=== PATIENT | female | born 2000 | race Two or more races ===

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

== ENCOUNTER 2021-05-17 23:03 | Emergency (ER) | payer OTHER ==
[2021-05-17 23:13] VITALS: RESP 18; TEMP 99
[2021-05-17] MEDS ORDERED: SODIUM CHLORIDE 0.9% 1,000 ML IV STA (23:24)
[2021-05-17] MEDS ORDERED: levETIRAcetam IV 1,000 MG in SALINE 1 100ML.BAG IVPB ONE (23:30)
[2021-05-17 23:50] LABS: Basophils # (A) 0.1 k/uL (0-0.2); Basophils % (A) 1 %; Eosinophils # (A) 0.2 k/uL (0-0.7); Eosinophils % (A) 2 %; HCT 43.3 % (34.0-46.0); HGB 14.1 gm/dL (11.4-16.0); Lymphocytes # (A) 1.6 k/uL (1.0-4.8); Lymphocytes % (A) 19 %; MCH 26.7 pg (25.0-35.0); MCHC 32.5 g/dL (31.0-37.0); MCV 82.3 fL (80.0-100.0); Mean Platelet Volume 8.5; Monocytes # (A) 0.5 k/uL (0-1.0); Monocytes % (A) 7 %; Neutrophils # (A) 5.6 k/uL (1.3-7.7); Neutrophils % (A) 69 %; Platelet Count 257 k/uL (150-450); RBC 5.26 m/uL (3.80-5.40); RDW 14.4 % (11.5-15.5); WBC 8.2 k/uL (4.0-11.0)
[2021-05-18 00:02] LABS: ALT 26 U/L (4-34); AST 47 U/L (14-36); African American GFR (CKD) >90 (>60 ml/min/1.73 sqM); Albumin 4.5 g/dL (3.5-5.0); Alkaline Phosphatase 60 U/L (38-126); Anion Gap 12 mmol/L; Blood Urea Nitrogen 11 mg/dL (7-17); Calcium 9.5 mg/dL (8.4-10.2); Carbon Dioxide 27 mmol/L (22-30); Chloride 99 mmol/L (98-107); Glucose 98 mg/dL (74-99); Non-African American GFR(CKD) 81 (>60 ml/min/1.73 sqM); Sodium 138 mmol/L (137-145); Total Bilirubin 0.7 mg/dL (0.2-1.3); Total Protein 7.2 g/dL (6.3-8.2)
--- NOTE | 2021-05-18 00:13 | ED ---
Seizure HPI - General Chief Complaint: Seizure Stated Complaint: Seizure Time Seen by Provider: 05/17/21 23:07 Source: EMS Mode of arrival: EMS Limitations: no limitations - History of Present Illness Initial Comments: 20 year-old female transitioning to male with past history significant for seizures presents to the emergency department today for evaluation after having a seizure at home. Mother states that he was lying on the couch watching when he started seizing. States her last approximately 5 minutes until he quit. Denies any loss of bowel or bladder control. Was tired and somewhat confused upon awakening. Patient missed his last doctor's appointment and was running out of his Keppra so he has been taking only half a dose daily. Does have an appointment on Thursday. He is currently reporting feeling tired. Denies any headache, blurred vision, double vision. Denies any recent illness or fever. Denies any recent head injury. Patient denies any recent rash, fever, chills, cough, shortness of breath, chest pain, abdominal pain, nausea, vomiting, diarrhea, constipation, back pain, numbness, tingling, dizziness, weakness, hematuria, dysuria, urinary urgency, urinary frequency, or any other complaints. - Related Data Home Medications Medication Instructions Recorded Confirmed levETIRAcetam [Keppra] 750 mg PO Q12HR 08/12/16 08/16/16 Previous Rx's Medication Instructions Recorded Sulfamethox-Tmp 800-160Mg [Bactrim 1 each PO Q12HR #14 tab 08/16/16 Ds] levETIRAcetam [Keppra] 1,000 mg PO Q12HR #14 tab 05/18/21 levETIRAcetam [Keppra] 250 mg PO DAILY #7 tab 05/18/21 Allergies Allergy/AdvReac Type Severity Reaction Status Date / Time No Known Allergies Allergy Verified 05/17/21 23:14 Review of Systems ROS Statement: Those systems with pertinent positive or pertinent negative responses have been documented in the HPI. ROS Other: All systems not noted in ROS Statement are negative. Past Medical History Past Medical History: Seizure Disorder Additional Past Medical History / Comment(s): seziure History of Any Multi-Drug Resistant Organisms: None Reported Past Surgical History: No Surgical Hx Reported Past Psychological History: No Psychological Hx Reported Past Alcohol Use History: None Reported Past Drug Use History: None Reported General Exam Limitations: no limitations General appearance: alert, in no apparent distress, other (Physical well- developed, well-nourished adult patient in no acute distress. Vital signs upon presentation are temperature 99.0F, pulse 93, respirations 18, blood pressure 143/92, pulse ox 98% on room air.) Eye exam: Present: normal appearance, PERRL, EOMI. Absent: scleral icterus, conjunctival injection, nystagmus, periorbital swelling ENT exam: Present: normal exam, normal oropharynx, mucous membranes moist Respiratory exam: Present: normal lung sounds bilaterally. Absent: respiratory distress, wheezes, rales, rhonchi, stridor Cardiovascular Exam: Present: regular rate, normal rhythm, normal heart sounds. Absent: systolic murmur, diastolic murmur, rubs, gallop, clicks GI/Abdominal exam: Present: soft, normal bowel sounds. Absent: distended, tenderness, guarding, rebound, rigid Neurological exam: Present: alert, oriented X3, CN II-XII intact Psychiatric exam: Present: normal affect, normal mood Skin exam: Present: warm, dry, intact, normal color. Absent: rash Course Vital Signs 05/17/21 05/18/21 23:06 01:09 Temperature 99.0 F Pulse Rate 93 87 Respiratory 18 18 Rate Blood Pressure 143/92 139/85 O2 Sat by Pulse 98 99 Oximetry Medical Decision Making - Medical Decision Making 20-year-old female patient transitioning to male presents for evaluation after having a five-minute seizure at home. No loss of bowel or bladder control, no tongue biting. Upon arrival patient is alert and oriented reports feeling tired. Physical examination is unremarkable. Labs reviewed and are unremarkable. He did admit that he has not taking her medications as prescribed that he did run out of her prescription. He was given a loading dose of 1000 mg of Keppra here. He'll be discharged with a one-week prescription as he does have an appointment with her primary care doctor Thursday. Return parameters were discussed in detail. He verbalizes understanding and agrees with this plan. My attending is Dr. Araiza. - Lab Data Result diagrams: 05/17/21 23:35 05/17/21 23:35 Lab Results 05/17/21 05/17/21 Range/Units 23:35 23:35 WBC 8.2 (4.0-11.0) k/uL RBC 5.26 (3.80-5.40) m/uL Hgb 14.1 (11.4-16.0) gm/dL Hct 43.3 (34.0-46.0) % MCV 82.3 (80.0-100.0) fL MCH 26.7 (25.0-35.0) pg MCHC 32.5 (31.0-37.0) g/dL RDW 14.4 (11.5-15.5) % Plt Count 257 (150-450) k/uL MPV 8.5 Neutrophils % 69 % Lymphocytes % 19 % Monocytes % 7 % Eosinophils % 2 % Basophils % 1 % Neutrophils # 5.6 (1.3-7.7) k/uL Lymphocytes # 1.6 (1.0-4.8) k/uL Monocytes # 0.5 (0-1.0) k/uL Eosinophils # 0.2 (0-0.7) k/uL Basophils # 0.1 (0-0.2) k/uL Sodium 138 (137-145) mmol/L Potassium 4.0 (3.5-5.1) mmol/L Chloride 99 (98-107) mmol/L Carbon Dioxide 27 (22-30) mmol/L Anion Gap 12 mmol/L BUN 11 (7-17) mg/dL Creatinine 1.01 (0.52-1.04) mg/dL Est GFR (CKD-EPI)AfAm >90 (>60 ml/min/1.73 sqM) Est GFR (CKD-EPI)NonAf 81 (>60 ml/min/1.73 sqM) Glucose 98 (74-99) mg/dL Calcium 9.5 (8.4-10.2) mg/dL Magnesium 2.0 (1.6-2.3) mg/dL Total Bilirubin 0.7 (0.2-1.3) mg/dL AST 47 H (14-36) U/L ALT 26 (4-34) U/L Alkaline Phosphatase 60 (38-126) U/L Total Protein 7.2 (6.3-8.2) g/dL Albumin 4.5 (3.5-5.0) g/dL - EKG Data -: EKG Interpreted by Mo EKG Comments: EKG obtained at 2308 shows normal sinus rhythm with sinus arrhythmia, ventricular rate 93, VA interval 140, QRS duration 94, QT 364, QTC 452. No evidence of ST elevation or depression. Disposition Clinical Impression: Seizure Disposition: HOME SELF-CARE Condition: Good Instructions (If sedation given, give patient instructions): Recurrent Seizures in Adults (ED) Additional Instructions: Take medications as directed. Follow-up with her physician on Thursday as you have planned. Return to the emergency department for any new, worsening, or concerning symptoms. Prescriptions: levETIRAcetam [Keppra] 1,000 mg PO Q12HR #14 tab levETIRAcetam [Keppra] 250 mg PO DAILY #7 tab Is patient prescribed a controlled substance at d/c from ED?: No Referrals: Tayler Lyn MD [Primary Care Provider] - 1-2 days Time of Disposition: 00:33
[2021-05-18 01:09] VITALS: BP 139/85; PULSE 87
== END 2021-05-18 00:50 | disposition home or self-care (01) ==
LOC: EC 23:03
DX: G40.909 Epilepsy, unspecified, not intractable, without status epilepticus (principal); Z79.899 Other long term (current) drug therapy
CPT/HCPCS: 93005; 80053; 80177; 83735; 85025; 99284; 96374; 96361; J1953

== ENCOUNTER → 2021-09-27 | Outpatient (CLI) | payer OTHER | END | disposition home or self-care (01) | LOC: LABWHC1 08:19 | PROVIDERS: ATTEND Psychiatry & Neurology Neurology | DX: G40.89 Other seizures (principal) | CPT/HCPCS: 36415; 80177 ==

== ENCOUNTER → 2022-05-27 | Outpatient (CLI) | payer OTHER | END | disposition home or self-care (01) | LOC: LABWHC1 14:37 | PROVIDERS: ATTEND Psychiatry & Neurology Neurology | DX: G40.89 Other seizures (principal) | CPT/HCPCS: 36415; 80177 ==

== ENCOUNTER → 2022-06-25 | Outpatient (CLI) | payer OTHER ==
--- NOTE | 2022-06-26 06:45 | MR ---
EXAMINATION TYPE: MR brain wo/w con DATE OF EXAM: 06/25/2022 COMPARISON: Prior MRI brain February 02, 2015 HISTORY: Seizure, migraines. TECHNIQUE: Multiplanar, multisequence images of the brain and brainstem is performed without and with IV contras t, utilizing 7 mL intravenous Gadavist . FINDINGS: Diffusion weighted images demonstrate no evidence of a recent infarct or other diffusion ab normality. There is no extra-axial fluid collection or significant white matter signal abnormality. The ventricular system and cisternal spaces are normal in size and appearance. The brain volume is age appropriate. T2 coronal weighted images show hippocampal gyri appear symmetric and felt within no rmal limits. Midline structures redemonstrate normal morphology. The craniocervical junction appears within clemente l limits. Post contrast images demonstrate no abnormal enhancement. The dural venous sinuses appear patent. Mild to moderate mucosal thickening involving ethmoid sinuses left greater than right is pres ent. Globes are intact bilaterally. IMPRESSION: Chronic ethmoid sinus disease redemonstrated otherwise unremarkable study.
== END | disposition home or self-care (01) ==
LOC: RADMRIMAIN 21:45
PROVIDERS: ATTEND Family Medicine
DX: G40.909 Epilepsy, unspecified, not intractable, without status epilepticus (principal); G43.909 Migraine, unspecified, not intractable, without status migrainosus
CPT/HCPCS: 70553; A9585

== ENCOUNTER 2022-07-24 11:09 | Day surgery (SDC) | payer OTHER ==
[2022-07-23 13:26] VITALS: BMI 25.0
[~2022-07-24 11:09] MED LIST: LACTATED RINGERS 1,000 ML IV SCH
--- NOTE | 2022-07-24 13:17 | P.GSHP ---
History of Present Illness H&P Date: 07/24/22 Chief Complaint: GERD, GI bleed Is a 21-year-old female presents today for EGD colonoscopy. She is issues with GERD GI bleed Past Medical History Past Medical History: Seizure Disorder Additional Past Medical History / Comment(s): LAST SEIZURE 07/10/22,MIGRAINE HEADACHES History of Any Multi-Drug Resistant Organisms: None Reported Past Surgical History: No Surgical Hx Reported Past Anesthesia/Blood Transfusion Reactions: No Reported Reaction Smoking Status: Never smoker - Past Family History Mother Family Medical History: No Reported History Medications and Allergies Home Medications Medication Instructions Recorded Confirmed Type levETIRAcetam [Keppra] 1,000 mg PO Q12H 07/23/22 07/24/22 History levETIRAcetam [Keppra] 500 mg PO Q12H 07/23/22 07/24/22 History Allergies Allergy/AdvReac Type Severity Reaction Status Date / Time No Known Allergies Allergy Verified 07/24/22 13:10 Surgical - Exam - General well developed, well nourished, no distress - Eyes PERRL - ENT normal pinna - Neck no masses - Respiratory normal expansion - Cardiovascular Rhythm: regular - Abdomen Abdomen: soft, non tender Assessment and Plan Assessment: GERD, GI bleed. We'll perform EGD and colonoscopy
[2022-07-24] MEDS ORDERED: LACTATED RINGERS 1,000 ML IV ONE ×2 (13:18)
[2022-07-24 13:24] VITALS: RESP 16; TEMP 98.5
[2022-07-24] MEDS ORDERED: LIDOCAINE 2% INJ 20 MG/ML (2 ML VIAL) ONE (14:27)
[2022-07-24] MEDS ORDERED: PROPOFOL 10 MG/ML 20 ML VIAL IV ONE (14:27)
--- NOTE | 2022-07-24 14:50 | P.OP ---
Date of Procedure: 07/24/22 Preoperative Diagnosis: GERD Diarrhea Postoperative Diagnosis: Antral gastritis Small sliding hiatal hernia Mild esophagitis Procedure(s) Performed: EGD Colonoscopy Anesthesia: MAC Surgeon: James Burk Pathology: other (Antrum, esophagus) Condition: stable Disposition: PACU Description of Procedure: The patient's placed on the endoscopy table lateral position. She received IV sedation. The gastroscope some placed oropharynx into the esophagus and stomach. Scope was then placed through the pylorus. The first and second portion of the duodenum appeared normal. Scope summer back the antrum was mildly inflamed. Biopsies performed. Scope was then retroflexed and the remainder the stomach appeared all. The patient a small sliding hiatal hernia. The GE junction was at 38 cm. The distal esophagus appeared minimally inflamed and a biopsies performed. The proximal esophagus appeared normal. Scope was withdrawn for patient. Next digital rectal exam was performed. This revealed no abnormalities. Flexible colonoscope was then placed patient anus passed throughout the entire colon. Ileocecal valve visualized. The cecum, ascending and transverse colon appeared normal. The descending and sigmoid colon appeared normal. Due to the patient's symptoms of diarrhea a random rectal biopsies performed. However the rectum appeared normal. Scope was withdrawn for patient.
[2022-07-24 15:17] VITALS: BP 111/73; PULSE 66
== END 2022-07-24 15:40 | disposition home or self-care (01) ==
LOC: ORWHC2ENDO 11:09
PROVIDERS: ATTEND Surgery
DX: K29.50 Unspecified chronic gastritis without bleeding (principal); K21.00 Gastro-esophageal reflux disease with esophagitis, without bleeding; K44.9 Diaphragmatic hernia without obstruction or gangrene; G40.909 Epilepsy, unspecified, not intractable, without status epilepticus; Z79.899 Other long term (current) drug therapy
CPT/HCPCS: 81025; 84703; 45380; 43239; J2704; J2001; 88305

== ENCOUNTER 2022-08-06 11:46 | Emergency (ER) | payer OTHER ==
[2022-08-06 11:56] VITALS: TEMP 98.1
[2022-08-06 12:22] LABS: Appearance,Urine Clear (Clear); Bilirubin,Urine Negative (Negative); Blood,Urine Negative (Negative); Color,Urine Yellow; Glucose,Urine (UA) Negative (Negative); Ketones,Urine Trace (Negative); Leukocyte Esterase,Urine Moderate (Negative); Mucus,Urine Rare /hpf; Nitrite,Urine Negative (Negative); Protein,Urine Trace (Negative); RBC,Urine 2 /hpf (0-5); Specific Gravity,Urine 1.026 (1.001-1.035); Squamous Epithelial Cell,Urine <1 /hpf (0-4); Urobilinogen,Urine <2.0 mg/dL (<2.0); WBC,Urine 6 /hpf (0-5)
[2022-08-06] MEDS ORDERED: PANTOPRAZOLE 40 MG/10 ML VIAL IVP STA (13:09)
[2022-08-06] MEDS ORDERED: MORPHINE SULFATE 2 MG/ML SYRINGE IVP STA (13:09)
[2022-08-06] MEDS ORDERED: ONDANSETRON 4 MG/2 ML VIAL IVP STA (13:09)
[2022-08-06] MEDS ORDERED: SODIUM CHLORIDE 0.9% 1,000 ML IV STA (13:09)
[2022-08-06] MEDS ORDERED: MAG HYDROX/AL HYDROX/SIMETH 30 ML, HYOSCYAMINE ELIXIR 10 ML, LIDOCAINE VISCOUS 2% 10 ML PO STA ×3 (13:12)
[2022-08-06 13:43] LABS: Basophils # (A) 0.1 k/uL (0-0.2); Basophils % (A) 1 %; Eosinophils # (A) 0.3 k/uL (0-0.7); Eosinophils % (A) 4 %; HCT 45.9 % (39.0-53.0); HGB 15.9 gm/dL (13.0-17.5); Lymphocytes # (A) 1.4 k/uL (1.0-4.8); Lymphocytes % (A) 22 %; MCH 30.1 pg (25.0-35.0); MCHC 34.6 g/dL (31.0-37.0); MCV 87.1 fL (80.0-100.0); Mean Platelet Volume 9.4; Monocytes # (A) 0.4 k/uL (0-1.0); Monocytes % (A) 6 %; Neutrophils # (A) 4.2 k/uL (1.3-7.7); Neutrophils % (A) 64 %; Platelet Count 254 k/uL (150-450); RBC 5.27 m/uL (4.30-5.90); RDW 12.5 % (11.5-15.5); WBC 6.5 k/uL (4.0-11.0)
--- NOTE | 2022-08-06 13:52 | XR ---
EXAMINATION TYPE: XR chest 2V DATE OF EXAM: 08/06/2022 COMPARISON: NONE HISTORY: pain TECHNIQUE: Frontal and lateral views of the chest are obtained. FINDINGS: There is no focal air space opacity, pleural effusion, or pneumothorax seen. The cardiac silhouette size is within normal limits. There are overlying leads. Right hemidiaphragm is elevated. The osseous structures are intact. IMPRESSION: No acute cardiopulmonary process.
[2022-08-06 13:55] LABS: HCG,Qualitative Serum Not Detected
[2022-08-06 13:57] LABS: INR 1.1 (<1.2); Partial Thromboplastin Time 26.9 sec (22.0-30.0); Prothrombin Time 11.8 sec (9.0-12.0)
[2022-08-06 14:08] LABS: ALT 25 U/L (4-49); AST 24 U/L (17-59); African American GFR (CKD) 116 (>60 ml/min/1.73 sqM); Albumin 4.6 g/dL (3.5-5.0); Alkaline Phosphatase 52 U/L (38-126); Amylase 38 U/L (30-110); Anion Gap 12 mmol/L; Blood Urea Nitrogen 11 mg/dL (9-20); Calcium 9.3 mg/dL (8.4-10.2); Carbon Dioxide 23 mmol/L (22-30); Chloride 104 mmol/L (98-107); Glucose 91 mg/dL (74-99); Lipase 89 U/L (23-300); Non-African American GFR(CKD) 100 (>60 ml/min/1.73 sqM); Sodium 139 mmol/L (137-145); Total Bilirubin 0.7 mg/dL (0.2-1.3); Total Protein 7.3 g/dL (6.3-8.2)
[2022-08-06 14:38] VITALS: RESP 18
--- NOTE | 2022-08-06 14:43 | ED ---
General Adult HPI - General Chief complaint: Abdominal Pain Stated complaint: chest & abd pain Time Seen by Provider: 08/06/22 12:44 Source: patient, RN notes reviewed, old records reviewed Mode of arrival: ambulatory Limitations: no limitations - History of Present Illness Initial comments: Patient is a 21-year-old genetically female who identifies as male and goes by the name Vincent presents emergency Department complaining of acute onset chronic abdominal pain. Has a history of recent EGD done by Dr. Burk which revealed gastritis, as well as a small hiatal hernia. Presents for reevaluation as his symptoms have minimally improved since the procedure. Is not on any medications for it. Biopsies obtained revealed gastritis. No signs of H pylori. Mild chronic esophagitis. Presents for further evaluation. He endorses mild nausea. States he has noticed a small amount of possible blood in his spit up. Has been dry heaving. Has not followed up with any physicians. Does have a history of seizure disorder and is compliant with medications. Denies emesis. Denies diarrhea. Denies change in bowel movements. Denies dysuria or hematuria. Denies any vaginal bleeding or discharge. Has no other acute complaints at this time. States the pain radiates from his epigastric the middle. Burning in nature. No other acute complaints at this time. Presents for further evaluation. - Related Data Home Medications Medication Instructions Recorded Confirmed levETIRAcetam [Keppra] 1,000 mg PO Q12H 07/23/22 07/24/22 levETIRAcetam [Keppra] 500 mg PO Q12H 07/23/22 07/24/22 Previous Rx's Medication Instructions Recorded Famotidine 20 mg PO DAILY 10 Days #10 tab 08/06/22 Mag Hydrox/Al Hydrox/Simeth 30 ml PO BID PRN #400 ml 08/06/22 [Maalox] Allergies Allergy/AdvReac Type Severity Reaction Status Date / Time No Known Allergies Allergy Verified 08/06/22 14:47 Review of Systems ROS Statement: Those systems with pertinent positive or pertinent negative responses have been documented in the HPI. Review of Systems: CONST: Denies fever EYES: Denies blurry vision ENT: Denies nasal congestion C/V: Denies Chest pain RESP: Denies shortness of breath GI: Endorses abdominal pain : Denies dysuria SKIN: Denies rash. MSK: Denies joint pain. NEURO: Denies headache ROS Other: All systems not noted in ROS Statement are negative. Past Medical History Past Medical History: Seizure Disorder Additional Past Medical History / Comment(s): LAST SEIZURE 07/10/22,MIGRAINE HEADACHES, patient transitioning to female and has been taking testoterone for 2 years History of Any Multi-Drug Resistant Organisms: None Reported Past Surgical History: No Surgical Hx Reported Additional Past Surgical History / Comment(s): Endoscopy Past Anesthesia/Blood Transfusion Reactions: No Reported Reaction Past Psychological History: No Psychological Hx Reported Smoking Status: Never smoker Past Alcohol Use History: None Reported Past Drug Use History: None Reported - Past Family History Mother Family Medical History: No Reported History General Exam - General Exam Comments Initial Comments: General: Appears in no acute distress. HEAD: Normal with no signs of head trauma. EYES: PERRLA, EOMI, conjunctiva normal, no discharge. ENT: Hearing grossly intact, normal oropharynx. RESPIRATORY: Clear breath sounds bilaterally. No wheezes, rales, or rhonchi. C/V: Regular rate and rhythm. S1 and S2 auscultated, no edema, peripheral pulses 2+ and intact throughout ABD: Abdomen soft, nondistended. Mildly tender to palpation epigastric region. No radiation. No guarding. No rebound tenderness. No peritoneal signs. EXT: Normal range of motion, no obvious deformity SKIN: No rashes or lesions observed on exposed skin. NEURO: Alert and oriented 4. Limitations: no limitations Course Vital Signs 08/06/22 08/06/22 11:53 14:38 Temperature 98.1 F Pulse Rate 71 57 Respiratory 16 18 Rate Blood Pressure 155/100 136/81 O2 Sat by Pulse 100 96 Oximetry Medical Decision Making - Medical Decision Making Based on the patient's presentation and physical exam, I do believe he is likely experiencing chronic symptoms from his gastritis, acid reflux. However cannot rule out acute etiology at this time. We'll obtain screening EKG and chest x- ray. We'll obtain abdominal laboratory studies. Will be given GI cocktail as well as abdominal medications. He was in agreement this plan. Vital signs within acceptable limits. EKG shows no signs of acute ischemia. Chest x-ray shows no acute card iopulmonary process. No air under the diaphragm. Laboratory studies are all within normal limits. Patient is not . Urinalysis is unremarkable. On reevaluation, vital signs remained within acceptable limits. Feeling somewhat improved. We discussed his results. He will follow-up with his surgeon as well as PCP. Strict return precautions were discussed. Discussed diagnosis of abdominal pain of unknown etiology, suspect gastritis. I will provide the patient with a prescription for Maalox, famotidine. I instructed the patient to follow up with their PCP in the next 1-3 days. I explained that the patient should return to the emergency department if they experience any worsening symptoms. Strict return precautions were discussed with the patient. The patient expressed understanding of these instructions. I answered all questions that the patient had. The patient was discharged home in good condition with their prescriptions and follow up information. - Lab Data Result diagrams: 08/06/22 13:24 08/06/22 13:24 Lab Results 08/06/22 08/06/22 08/06/22 Range/Units 12:12 13:14 13:24 WBC 6.5 (4.0-11.0) k/uL RBC 5.27 (4.30-5.90) m/uL Hgb 15.9 (13.0-17.5) gm/dL Hct 45.9 (39.0-53.0) % MCV 87.1 (80.0-100.0) fL MCH 30.1 (25.0-35.0) pg MCHC 34.6 (31.0-37.0) g/dL RDW 12.5 (11.5-15.5) % Plt Count 254 (150-450) k/uL MPV 9.4 Neutrophils % 64 % Lymphocytes % 22 % Monocytes % 6 % Eosinophils % 4 % Basophils % 1 % Neutrophils # 4.2 (1.3-7.7) k/uL Lymphocytes # 1.4 (1.0-4.8) k/uL Monocytes # 0.4 (0-1.0) k/uL Eosinophils # 0.3 (0-0.7) k/uL Basophils # 0.1 (0-0.2) k/uL PT (9.0-12.0) sec INR (<1.2) APTT (22.0-30.0) sec Sodium (137-145) mmol/L Potassium (3.5-5.1) mmol/L Chloride (98-107) mmol/L Carbon Dioxide (22-30) mmol/L Anion Gap mmol/L BUN (9-20) mg/dL Creatinine (0.66-1.25) mg/dL Est GFR (CKD-EPI)AfAm (>60 ml/min/1.73 sqM) Est GFR (CKD-EPI)NonAf (>60 ml/min/1.73 sqM) Glucose (74-99) mg/dL Plasma Lactic Acid Sigifredo (0.7-2.0) mmol/L Calcium (8.4-10.2) mg/dL Total Bilirubin (0.2-1.3) mg/dL AST (17-59) U/L ALT (4-49) U/L Alkaline Phosphatase (38-126) U/L Total Protein (6.3-8.2) g/dL Albumin (3.5-5.0) g/dL Amylase (30-110) U/L Lipase (23-300) U/L HCG, Qual Urine Color Yellow Urine Appearance Clear (Clear) Urine pH 6.0 (5.0-8.0) Ur Specific Justice 1.026 (1.001-1.035) Urine Protein Trace H (Negative) Urine Glucose (UA) Negative (Negative) Urine Ketones Trace H (Negative) Urine Blood Negative (Negative) Urine Nitrite Negative (Negative) Urine Bilirubin Negative (Negative) Urine Urobilinogen <2.0 (<2.0) mg/dL Ur Leukocyte Esterase Moderate H (Negative) Urine RBC 2 (0-5) /hpf Urine WBC 6 H (0-5) /hpf Ur Squamous Epith Cells <1 (0-4) /hpf Urine Mucus Rare H (None) /hpf Urine HCG, Qual Not Detected (Not Detectd) 08/06/22 08/06/22 08/06/22 Range/Units 13:24 13:24 13:24 WBC (4.0-11.0) k/uL RBC (4.30-5.90) m/uL Hgb (13.0-17.5) gm/dL Hct (39.0-53.0) % MCV (80.0-100.0) fL MCH (25.0-35.0) pg MCHC (31.0-37.0) g/dL RDW (11.5-15.5) % Plt Count (150-450) k/uL MPV Neutrophils % % Lymphocytes % % Monocytes % % Eosinophils % % Basophils % % Neutrophils # (1.3-7.7) k/uL Lymphocytes # (1.0-4.8) k/uL Monocytes # (0-1.0) k/uL Eosinophils # (0-0.7) k/uL Basophils # (0-0.2) k/uL PT 11.8 (9.0-12.0) sec INR 1.1 (<1.2) APTT 26.9 (22.0-30.0) sec Sodium 139 (137-145) mmol/L Potassium 4.0 (3.5-5.1) mmol/L Chloride 104 (98-107) mmol/L Carbon Dioxide 23 (22-30) mmol/L Anion Gap 12 mmol/L BUN 11 (9-20) mg/dL Creatinine 1.07 (0.66-1.25) mg/dL Est GFR (CKD-EPI)AfAm 116 (>60 ml/min/1.73 sqM) Est GFR (CKD-EPI)NonAf 100 (>60 ml/min/1.73 sqM) Glucose 91 (74-99) mg/dL Plasma Lactic Acid Sigifredo 0.8 (0.7-2.0) mmol/L Calcium 9.3 (8.4-10.2) mg/dL Total Bilirubin 0.7 (0.2-1.3) mg/dL AST 24 (17-59) U/L ALT 25 (4-49) U/L Alkaline Phosphatase 52 (38-126) U/L Total Protein 7.3 (6.3-8.2) g/dL Albumin 4.6 (3.5-5.0) g/dL Amylase 38 (30-110) U/L Lipase 89 (23-300) U/L HCG, Qual Not Detected Urine Color Urine Appearance (Clear) Urine pH (5.0-8.0) Ur Specific Justice (1.001-1.035) Urine Protein (Negative) Urine Glucose (UA) (Negative) Urine Ketones (Negative) Urine Blood (Negative) Urine Nitrite (Negative) Urine Bilirubin (Negative) Urine Urobilinogen (<2.0) mg/dL Ur Leukocyte Esterase (Negative) Urine RBC (0-5) /hpf Urine WBC (0-5) /hpf Ur Squamous Epith Cells (0-4) /hpf Urine Mucus (None) /hpf Urine HCG, Qual (Not Detectd) - EKG Data -: EKG Interpreted by Me EKG Comments: 12-lead Electrocardiogram Interpretation Note EKG was reviewed and interpreted by myself. 12-lead ECG performed at 1316 is interpreted by me as revealing sinus bradycardia at a rate of 44 beats per minute. [place] is normal. ID interval is 144 ms, QRS duration is 100 ms, QTc is 368 ms.. There were no ST or T wave abnormalities to suggest myocardial isc hemia or injury. R wave progression across the precordium was satisfactory. By my interpretation this EKG is non-diagnostic for acute ischemia. Disposition Clinical Impression: Abdominal pain of unknown etiology Disposition: HOME SELF-CARE Condition: Good Instructions (If sedation given, give patient instructions): Abdominal Pain (ED) Prescriptions: Famotidine 20 mg PO DAILY 10 Days #10 tab Mag Hydrox/Al Hydrox/Simeth [Maalox] 30 ml PO BID PRN #400 ml PRN Reason: Dyspepsia Is patient prescribed a controlled substance at d/c from ED?: No Referrals: Ludy Restrepo DO [Primary Care Provider] - 1-2 days Time of Disposition: 14:20
[2022-08-06 14:56] VITALS: BP 136/80; PULSE 55
== END 2022-08-06 14:57 | disposition home or self-care (01) ==
LOC: EDSEX → EC 11:46
DX: R10.9 Unspecified abdominal pain (principal)
CPT/HCPCS: 36415; 93005; 80053; 82150; 83605; 83690; 85025; 85610; 85730; 81001; 81025; 84703; 71046; 99284; J2405; J2270; C9113

== ENCOUNTER → 2022-08-11 | Outpatient (CLI) | payer OTHER ==
--- NOTE | 2022-08-11 15:51 | NM ---
Nuclear medicine hepatobiliary scan. HISTORY: Pain. DOSAGE: The patient received 1.4 micrograms of CCK and 4.2 mCi of Technetium 99m Choletec. FINDINGS: There is normal hepatic extraction. The gallbladder is seen by 10 minutes. There is bilia ry to bowel clearance by 60 minutes. Ejection fraction is 81%. IMPRESSION: 1. No evidence of cholecystitis. 2. Ejection fraction of 81% correlate clinically.
== END | disposition home or self-care (01) ==
LOC: EDSEX → RADNMMAIN 12:50
PROVIDERS: ATTEND Surgery
DX: K82.8 Other specified diseases of gallbladder (principal)
CPT/HCPCS: 78227; A9537; J2805

== ENCOUNTER → 2022-08-26 | Outpatient (CLI) | payer OTHER ==
[2022-08-27 06:57] LABS: Levetiracetam (Keppra) 32.1 ug/mL (3.0-60.0)
== END | disposition home or self-care (01) ==
LOC: LABWHC1 08:43
PROVIDERS: ATTEND Psychiatry & Neurology Neurology
DX: G40.309 Generalized idiopathic epilepsy and epileptic syndromes, not intractable, without status epilepticus (principal)
CPT/HCPCS: 36415; 80177; 80235

== ENCOUNTER → 2022-09-29 | Day surgery (SDC) | payer OTHER ==
[2022-09-09 15:58] VITALS: BMI 25.4
[~2022-09-29] MED LIST changes: +ACETAMINOPHEN TAB 500 MG TAB PO PRN; +BUPIVACAIN-EPI 0.25%-1:200,000 30 ML VIAL SQ ONE; +DEXAMETHASONE SOD PHOSPHATE 4 MG/ML 1 ML VIAL IV ONE; +DEXAMETHASONE SOD PHOSPHATE 4 MG/ML 1 ML VIAL IVP ONE; +GLYCOPYRROLATE 0.2 MG/ML 2 ML VIAL ONE; +HEPARIN SODIUM,PORCINE/PF 5,000 UNIT/0.5 ML SYRINGE SQ PRN; +HYDROmorphone 0.5 MG/0.5 ML SYRINGE IVP ONE; +HYDROmorphone 0.5 MG/0.5 ML SYRINGE IVP PRN; +KETOROLAC 15 MG/ML 1 ML VIAL ONE; +LACTATED RINGERS 1,000 ML IV ONE; +LIDOCAINE 2% INJ 20 MG/ML (2 ML VIAL) ONE; +MIDAZOLAM 2 MG/2 ML VIAL IV PRN; +MIDAZOLAM 2 MG/2 ML VIAL ONE; +NEOSTIGMINE 1 MG/ML 10 ML VIAL ONE; +ONDANSETRON 4 MG/2 ML VIAL IVP ONE; +ONDANSETRON 4 MG/2 ML VIAL ONE; +PROPOFOL 10 MG/ML 20 ML VIAL IV ONE; +ROCURONIUM 10 MG/ML (5 ML VIAL) IV ONE; +SCOPOLAMINE 1 MG/72 HR PATCH TRANSDERM ONE; +SUCCINYLCHOLINE CHLORIDE 200 MG/10 ML VIAL IV ONE; +fentaNYL (PF) 50 MCG/ML 2 ML AMP ONE
--- NOTE | 2022-09-29 08:56 | P.GSHP ---
History of Present Illness H&P Date: 09/29/22 Chief Complaint: Right upper quadrant pain This a 21-year-old female who's had right upper quadrant pain. Recent HIDA scan shows a hyperdynamic gallbladder with biliary dysfunction. Patient presents today for laparoscopic cholecystectomy Past Medical History Past Medical History: GERD/Reflux, Seizure Disorder Additional Past Medical History / Comment(s): LAST SEIZURE 07/10/22,MIGRAINE HEADACHES, patient transitioning to male and has been taking testoterone for 2 years. History of Any Multi-Drug Resistant Organisms: None Reported Past Surgical History: No Surgical Hx Reported Additional Past Surgical History / Comment(s): Endoscopy, [place] teeth Past Anesthesia/Blood Transfusion Reactions: No Reported Reaction Smoking Status: Never smoker - Past Family History Mother Family Medical History: No Reported History Medications and Allergies Home Medications Medication Instructions Recorded Confirmed Type levETIRAcetam [Keppra] 1,500 mg PO Q12H 07/23/22 09/25/22 History Famotidine 20 mg PO DAILY 10 Days #10 tab 08/06/22 09/29/22 Rx Lacosamide [Vimpat] 100 mg PO BID 08/06/22 09/25/22 History SUMAtriptan succinate [Imitrex] 50 mg PO DAILY PRN 08/06/22 09/29/22 History Testosterone Cypionate 80 mg IM WE 08/06/22 09/29/22 History [Depo-Testosterone] Topiramate [Topamax] 200 mg PO HS 08/06/22 09/29/22 History Allergies Allergy/AdvReac Type Severity Reaction Status Date / Time No Known Allergies Allergy Verified 09/29/22 08:23 Surgical - Exam Vital Signs Temp Pulse Resp BP Pulse Ox 98.5 F 71 16 168/77 100 09/29/22 08:36 09/29/22 08:36 09/29/22 08:36 09/29/22 08:36 09/29/22 08:36 - General well developed, well nourished, no distress - Eyes PERRL - ENT normal pinna - Neck no masses - Respiratory normal expansion - Cardiovascular Rhythm: regular - Abdomen Abdomen: soft, non tender Assessment and Plan Assessment: Biliary dysfunction Chronic cholecystitis We'll perform laparoscopic cholecystectomy
--- NOTE | 2022-09-29 10:23 | P.OP ---
Date of Procedure: 09/29/22 Preoperative Diagnosis: Cholecystitis Postoperative Diagnosis: Cholecystitis Procedure(s) Performed: Laparoscopic cholecystectomy Anesthesia: PANCHITO Surgeon: James Burk Estimated Blood Loss (ml): 5 Pathology: other (Gallbladder) Condition: stable Disposition: PACU Description of Procedure: The patient was placed on the operating table. The patient received a general endotracheal tube anesthesia. The patients abdomen was prepped and draped in the usual sterile fashion. Through an infraumbilical stab incision, the fascia of the anterior abdominal wall was grasped with a pair of Kochers and then the Veress needle was placed in the peritoneal cavity. Position of the Veress needle was confirmed with positive drop test. The abdomen was then insufflated. After adequate insufflation, the 10 mm trocar was placed in the peritoneal cavity. Following this the laparoscope was placed in the peritoneal cavity. The patient was placed in the head-up, right side up position and then a 5 mm trocar was placed in the right lateral and right subcostal position under direct visualization. A 8 mm trocar was placed in the epigastric position. The gallbladder was grasped in the fundus and infundibulum. Traction on the gallbladder was placed in the lateral and the cephalad positions. The triangle of Calot was visualized.. The cystic duct was bluntly dissected until the union of the cystic duct and common bile duct was seen. A critical view of safety was achieved. The cystic duct was then divided and sealed with the Harmonic scissors. A PDS Endoloop was then placed throughout the cystic duct stump. The cystic artery divided and sealed with the Harmonic scissors. The gallbladder was then removed from the liver bed using Harmonic scissors. The gallbladder was then extracted through the epigastric port site. Operative field was checked for any bleeding spots and Harmonic scissors was used to coagulate the liver bed. The abdomen was irrigated. The trocars were removed. The skin was closed using interrupted 3-0 Vicryl suture. Dermabond dressing were applied. The patient tolerated the procedure well.
[2022-09-29 10:30] VITALS: TEMP 98.4
[2022-09-29 12:15] VITALS: RESP 16
[2022-09-29 13:26] VITALS: BP 120/79; PULSE 56
== END | disposition home or self-care (01) ==
LOC: EDSEX → OR 08:10
PROVIDERS: ATTEND Surgery
DX: K81.1 Chronic cholecystitis (principal); K21.9 Gastro-esophageal reflux disease without esophagitis; G40.909 Epilepsy, unspecified, not intractable, without status epilepticus; G43.909 Migraine, unspecified, not intractable, without status migrainosus; Z79.899 Other long term (current) drug therapy
CPT/HCPCS: 81025; 47562; J2250; J0330; J1100; J2710; J0690; J2405; J3010; J1885; J2704; J1170; J1644; J2001; 88304

== ENCOUNTER 2022-10-07 07:00 | Emergency (ER) | payer OTHER ==
[2022-10-07 07:04] VITALS: TEMP 98.1
[2022-10-07] MEDS ORDERED: SODIUM CHLORIDE 0.9% 2,000 ML IV STA (07:23)
--- NOTE | 2022-10-07 07:30 | ED ---
Abdominal Pain HPI - General Chief Complaint: Abdominal Pain Stated Complaint: Abd Pain Time Seen by Provider: 10/07/22 07:06 Source: patient, RN notes reviewed Mode of arrival: ambulatory Limitations: no limitations - History of Present Illness Initial Comments: This a 21-year-old patient presents emergency Department with chief complaint of abdominal pain. Patient had surgery last week by Dr. Kenney for chronic cholecystitis patient states he was feeling better started having pain increasing over the last 24 hours. Patient denies any nausea vomiting no dysuria no hematuria no history kidney stones pain is on the front right upper quadrant. Patient denies any chest pain shortness breath fevers chills night sweats. - Related Data Home Medications Medication Instructions Recorded Confirmed levETIRAcetam [Keppra] 1,500 mg PO Q12H 07/23/22 09/25/22 Lacosamide [Vimpat] 100 mg PO BID 08/06/22 09/25/22 SUMAtriptan succinate [Imitrex] 50 mg PO DAILY PRN 08/06/22 09/29/22 Testosterone Cypionate 80 mg IM WE 08/06/22 09/29/22 [Depo-Testosterone] Topiramate [Topamax] 200 mg PO HS 08/06/22 09/29/22 Previous Rx's Medication Instructions Recorded Famotidine 20 mg PO DAILY 10 Days #10 tab 08/06/22 Acetaminophen Tab [Tylenol] 650 mg PO Q6H #30 tab 09/29/22 Docusate [Colace] 100 mg PO BID #20 capsule 09/29/22 Ibuprofen [Motrin] 600 mg PO Q6HR PRN #40 tab 09/29/22 oxyCODONE HCL [OxyIR] 5 mg PO Q6H PRN 3 Days #10 tab 09/29/22 Cephalexin [Keflex] 500 mg PO Q8HR #21 cap 10/07/22 Allergies Allergy/AdvReac Type Severity Reaction Status Date / Time No Known Allergies Allergy Verified 10/07/22 07:04 Review of Systems ROS Statement: Those systems with pertinent positive or pertinent negative responses have been documented in the HPI. ROS Other: All systems not noted in ROS Statement are negative. Past Medical History Past Medical History: GERD/Reflux, Seizure Disorder Additional Past Medical History / Comment(s): LAST SEIZURE 07/10/22,MIGRAINE HEADACHES, patient transitioning to male and has been taking testoterone for 2 years. History of Any Multi-Drug Resistant Organisms: None Reported Past Surgical History: Cholecystectomy Additional Past Surgical History / Comment(s): Endoscopy, [place] teeth Past Anesthesia/Blood Transfusion Reactions: No Reported Reaction Past Psychological History: No Psychological Hx Reported Smoking Status: Never smoker Past Alcohol Use History: None Reported Past Drug Use History: None Reported - Past Family History Mother Family Medical History: No Reported History General Exam Limitations: no limitations General appearance: alert, in no apparent distress Head exam: Present: atraumatic, normocephalic, normal inspection Eye exam: Present: normal appearance, PERRL, EOMI. Absent: scleral icterus, conjunctival injection, periorbital swelling ENT exam: Present: normal exam, normal oropharynx, mucous membranes moist Neck exam: Present: normal inspection, full ROM. Absent: tenderness, meningismus, lymphadenopathy Respiratory exam: Present: normal lung sounds bilaterally. Absent: respiratory distress, wheezes, rales, rhonchi, stridor Cardiovascular Exam: Present: regular rate, normal rhythm, normal heart sounds. Absent: systolic murmur, diastolic murmur, rubs, gallop, clicks GI/Abdominal exam: Present: soft, tenderness, normal bowel sounds. Absent: distended, guarding, rebound, rigid Back exam: Absent: CVA tenderness (R), CVA tenderness (L) Neurological exam: Present: alert Skin exam: Present: warm, dry, intact, normal color. Absent: rash Course Vital Signs 10/07/22 07:02 Temperature 98.1 F Pulse Rate 82 Respiratory 18 Rate Blood Pressure 155/94 O2 Sat by Pulse 100 Oximetry Medical Decision Making - Medical Decision Making 21-year-old presented from for abdominal pain status post closed second. Patient does have evidence of urinary tract infection on urinalysis and hemoglobin is stable, white count within normal limits. CT shows moderate amount of fluid in the gallbladder fossa area which could possibly represent hematoma or biliary leak did discuss case with surgeon Dr. Burk recommends patient be discharged pain control, follow-up in office return for worsening changes symptoms - Lab Data Result diagrams: 10/07/22 07:36 10/07/22 07:36 Lab Results 10/07/22 10/07/22 10/07/22 Range/Units 07:36 07:36 07:36 WBC 8.1 (4.0-11.0) k/uL RBC 3.99 (3.80-5.40) m/uL Hgb 12.0 D (11.4-16.0) gm/dL Hct 35.1 (34.0-46.0) % MCV 87.9 (80.0-100.0) fL MCH 30.1 (25.0-35.0) pg MCHC 34.2 (31.0-37.0) g/dL RDW 12.8 (11.5-15.5) % Plt Count 318 (150-450) k/uL MPV 8.2 Neutrophils % 74 % Lymphocytes % 13 % Monocytes % 7 % Eosinophils % 3 % Basophils % 1 % Neutrophils # 6.0 (1.3-7.7) k/uL Lymphocytes # 1.1 (1.0-4.8) k/uL Monocytes # 0.6 (0-1.0) k/uL Eosinophils # 0.2 (0-0.7) k/uL Basophils # 0.1 (0-0.2) k/uL Sodium 139 (137-145) mmol/L Potassium 4.2 (3.5-5.1) mmol/L Chloride 103 (98-107) mmol/L Carbon Dioxide 32 H (22-30) mmol/L Anion Gap 4 mmol/L BUN 16 (9-20) mg/dL Creatinine 0.65 L (0.66-1.25) mg/dL Est GFR (CKD-EPI)AfAm 162 (>60 ml/min/1.73 sqM) Est GFR (CKD-EPI)NonAf 140 (>60 ml/min/1.73 sqM) Glucose 90 (74-99) mg/dL Plasma Lactic Acid Sigifredo (0.7-2.0) mmol/L Calcium 8.9 (8.4-10.2) mg/dL Total Bilirubin 1.8 H (0.2-1.3) mg/dL AST 28 (17-59) U/L ALT 31 (4-49) U/L Alkaline Phosphatase 45 (38-126) U/L Total Protein 6.8 (6.3-8.2) g/dL Albumin 4.1 (3.5-5.0) g/dL Lipase 69 (23-300) U/L Urine Color Yellow Urine Appearance Clear (Clear) Urine pH 6.5 (5.0-8.0) Ur Specific [place] 1.027 (1.001-1.035) Urine Protein Trace H (Negative) Urine Glucose (UA) Negative (Negative) Urine Ketones Negative (Negative) Urine Blood Negative (Negative) Urine Nitrite Negative (Negative) Urine Bilirubin Negative (Negative) Urine Urobilinogen 6.0 (<2.0) mg/dL Ur Leukocyte Esterase Large H (Negative) Urine RBC 3 (0-5) /hpf Urine WBC 24 H (0-5) /hpf Ur Squamous Epith Cells <1 (0-4) /hpf Hyaline Casts 1 (0-2) /lpf Urine Mucus Occasional (None) /hpf 10/07/22 Range/Units 07:36 WBC (4.0-11.0) k/uL RBC (3.80-5.40) m/uL Hgb (11.4-16.0) gm/dL Hct (34.0-46.0) % MCV (80.0-100.0) fL MCH (25.0-35.0) pg MCHC (31.0-37.0) g/dL RDW (11.5-15.5) % Plt Count (150-450) k/uL MPV Neutrophils % % Lymphocytes % % Monocytes % % Eosinophils % % Basophils % % Neutrophils # (1.3-7.7) k/uL Lymphocytes # (1.0-4.8) k/uL Monocytes # (0-1.0) k/uL Eosinophils # (0-0.7) k/uL Basophils # (0-0.2) k/uL Sodium (137-145) mmol/L Potassium (3.5-5.1) mmol/L Chloride (98-107) mmol/L Carbon Dioxide (22-30) mmol/L Anion Gap mmol/L BUN (9-20) mg/dL Creatinine (0.66-1.25) mg/dL Est GFR (CKD-EPI)AfAm (>60 ml/min/1.73 sqM) Est GFR (CKD-EPI)NonAf (>60 ml/min/1.73 sqM) Glucose (74-99) mg/dL Plasma Lactic Acid Sigifredo 0.7 (0.7-2.0) mmol/L Calcium (8.4-10.2) mg/dL Total Bilirubin (0.2-1.3) mg/dL AST (17-59) U/L ALT (4-49) U/L Alkaline Phosphatase (38-126) U/L Total Protein (6.3-8.2) g/dL Albumin (3.5-5.0) g/dL Lipase (23-300) U/L Urine Color Urine Appearance (Clear) Urine pH (5.0-8.0) Ur Specific [place] (1.001-1.035) Urine Protein (Negative) Urine Glucose (UA) (Negative) Urine Ketones (Negative) Urine Blood (Negative) Urine Nitrite (Negative) Urine Bilirubin (Negative) Urine Urobilinogen (<2.0) mg/dL Ur Leukocyte Esterase (Negative) Urine RBC (0-5) /hpf Urine WBC (0-5) /hpf Ur Squamous Epith Cells (0-4) /hpf Hyaline Casts (0-2) /lpf Urine Mucus (None) /hpf Disposition Clinical Impression: Status post laparoscopic cholecystectomy, Abdominal pain, UTI (urinary tract infection) Disposition: HOME SELF-CARE Condition: Stable Instructions (If sedation given, give patient instructions): Abdominal Pain (ED) Additional Instructions: Please return to the Emergency Department if symptoms worsen or any other concerns. Prescriptions: Cephalexin [Keflex] 500 mg PO Q8HR #21 cap Is patient prescribed a controlled substance at d/c from ED?: No Referrals: Ludy Restrepo DO [Primary Care Provider] - 1-2 days James Burk MD [STAFF PHYSICIAN] - 1-2 days Time of Disposition: 08:58
[2022-10-07] MEDS ORDERED: ONDANSETRON 4 MG/2 ML VIAL IVP STA (07:41)
[2022-10-07] MEDS ORDERED: HYDROmorphone 0.5 MG/0.5 ML SYRINGE IVP STA (07:41)
[2022-10-07 07:44] LABS: Basophils # (A) 0.1 k/uL (0-0.2); Basophils % (A) 1 %; Eosinophils # (A) 0.2 k/uL (0-0.7); Eosinophils % (A) 3 %; HCT 35.1 % (34.0-46.0); Lymphocytes # (A) 1.1 k/uL (1.0-4.8); Lymphocytes % (A) 13 %; MCH 30.1 pg (25.0-35.0); MCHC 34.2 g/dL (31.0-37.0); MCV 87.9 fL (80.0-100.0); Mean Platelet Volume 8.2; Monocytes # (A) 0.6 k/uL (0-1.0); Monocytes % (A) 7 %; Neutrophils % (A) 74 %; Platelet Count 318 k/uL (150-450); RBC 3.99 m/uL (3.80-5.40); RDW 12.8 % (11.5-15.5); WBC 8.1 k/uL (4.0-11.0)
[2022-10-07 07:57] LABS: Albumin 4.1 g/dL (3.5-5.0); Calcium 8.9 mg/dL (8.4-10.2); Potassium 4.2 mmol/L (3.5-5.1); Total Bilirubin 1.8 mg/dL (0.2-1.3); Total Protein 6.8 g/dL (6.3-8.2)
[2022-10-07 07:59] LABS: Appearance,Urine Clear (Clear); Bilirubin,Urine Negative (Negative); Blood,Urine Negative (Negative); Color,Urine Yellow; Glucose,Urine (UA) Negative (Negative); Hyaline Casts,Urine 1 /lpf (0-2); Ketones,Urine Negative (Negative); Leukocyte Esterase,Urine Large (Negative); Mucus,Urine Occasional /hpf; Nitrite,Urine Negative (Negative); PH, Urine 6.5 (5.0-8.0); Protein,Urine Trace (Negative); RBC,Urine 3 /hpf (0-5); Specific Gravity,Urine 1.027 (1.001-1.035); Squamous Epithelial Cell,Urine <1 /hpf (0-4); WBC,Urine 24 /hpf (0-5)
--- NOTE | 2022-10-07 08:33 | CT ---
EXAMINATION TYPE: CT abdomen pelvis w con CT DLP: 692.4 mGycm, Automated exposure control for dose reduction was used. DATE OF EXAM: 10/07/2022 8:20 AM COMPARISON: None CLINICAL INDICATION:21 years old with history of pain s/p cholecystectomy; TECHNIQUE: Standard CT of the abdomen and pelvis following the administration of 100 cc of Isovue 3 00 IV contrast material. Coronal and sagittal reformats were performed. FINDINGS: LOWER CHEST: Trace right pleural effusion with associated atelectasis. ABDOMEN LIVER: Unremarkable GALLBLADDER AND BILE DUCTS: The gallbladder is surgically absent. No biliary duct dilatation. Moderat e amount of heterogenous slightly hyperdense material demonstrated within the gallbladder fossa measu ring 7.5 x 4.2 cm. No focal high density focus in the changes on the delayed phase to suggest active extravasation. PANCREAS: Unremarkable. SPLEEN: Unremarkable. ADRENAL GLANDS: Unremarkable. KIDNEYS AND URETERS: No evidence of hydronephrosis or renal calculus. The kidneys enhance symmetrical ly. PELVIS BLADDER: Understood urinary bladder was performed wall thickening. REPRODUCTIVE: Unremarkable. ABDOMEN & PELVIS STOMACH AND BOWEL: Stomach and duodenum are unremarkable. No focal wall thickening. No evidence of bailey wel obstruction. PERITONEUM: Trace pneumoperitoneum is likely related to recent cholecystectomy. Small amount of free fluid in the pelvis tracking along the right paracolic gutter. Mild mesenteric congestion. VASCULATURE: No evidence of aortic aneurysm. MUSCULOSKELETAL: No acute osseous abnormalities LYMPH NODES: No gross evidence for lymphadenopathy. SOFT TISSUE/ABDOMINAL WALL: Tiny fat filled umbilical hernia. IMPRESSION: 1. Post surgical changes from cholecystectomy with moderate amount of heterogenous slightly hyperden se material within the gallbladder fossa. This may represent hematoma and/or biliary leak. No convinc ing evidence for active extravasation. 2. Circumferential wall thickening of the underdistended urinary bladder. Correlate for cystitis with urinalysis. 3. Trace right pleural effusion with associated atelectasis.
[2022-10-07] MEDS ORDERED: ACET/COD 300 MG/30 MG STARTER PACK 6 TAB BTL PO STA (08:59)
[2022-10-07 09:29] VITALS: BP 128/88; PULSE 83; RESP 16
== END 2022-10-07 09:48 | disposition home or self-care (01) ==
LOC: EDSEX → EC 07:00
DX: N39.0 Urinary tract infection, site not specified (principal); Z90.49 Acquired absence of other specified parts of digestive tract
CPT/HCPCS: 36415; 80053; 83605; 83690; 85025; 81001; 87086; 74177; 99284; 96374; 96375; 96361 ×2; J2405; J1170; Q9967

== ENCOUNTER → 2023-03-30 | Outpatient (CLI) | payer OTHER ==
[2023-03-30 17:28] LABS: Platelet Count 281 X 10*3/uL (140-440)
[2023-03-31 06:23] LABS: Levetiracetam (Keppra) 21.6 ug/mL (3.0-60.0)
[2023-03-31 18:35] LABS: ALT 33 U/L (8-44); AST 23 U/L (13-35)
== END | disposition home or self-care (01) ==
LOC: LABWHC1 11:27 → EDSEX 11:27
PROVIDERS: ATTEND Psychiatry & Neurology Neurology
DX: G40.309 Generalized idiopathic epilepsy and epileptic syndromes, not intractable, without status epilepticus (principal)
CPT/HCPCS: 36415; 80177; 80235; 84450; 84460; 85049

== ENCOUNTER 2023-06-22 00:33 | Emergency (ER) | payer OTHER ==
[2023-06-22 00:45] VITALS: BP 151/96; PULSE 60; RESP 19; TEMP 99.2
[2023-06-22] MEDS ORDERED: ONDANSETRON 4 MG/2 ML VIAL IVP STA (03:20)
[2023-06-22] MEDS ORDERED: KETOROLAC 15 MG/ML 1 ML VIAL IVP STA (03:20)
[2023-06-22] MEDS ORDERED: SODIUM CHLORIDE 0.9% 1,000 ML IV STA (03:20)
[2023-06-22 04:00] LABS: ALT 45 U/L (4-34); AST 37 U/L (14-36); African American GFR (CKD) >90 (>60 ml/min/1.73 sqM); Albumin 3.7 g/dL (3.5-5.0); Alkaline Phosphatase 42 U/L (38-126); Anion Gap 6 mmol/L; Basophils # (A) 0.1 k/uL (0-0.2); Basophils % (A) 1 %; Blood Urea Nitrogen 11 mg/dL (7-17); Calcium 9.1 mg/dL (8.4-10.2); Carbon Dioxide 30 mmol/L (22-30); Chloride 100 mmol/L (98-107); Eosinophils # (A) 0.5 k/uL (0-0.7); Eosinophils % (A) 6 %; Glucose 98 mg/dL (74-99); HCT 43.4 % (34.0-46.0); HGB 14.4 gm/dL (11.4-16.0); Lipase 109 U/L (23-300); Lymphocytes # (A) 2.4 k/uL (1.0-4.8); Lymphocytes % (A) 26 %; MCH 28.6 pg (25.0-35.0); MCHC 33.2 g/dL (31.0-37.0); MCV 86.2 fL (80.0-100.0); Mean Platelet Volume 9.3; Monocytes # (A) 0.6 k/uL (0-1.0); Monocytes % (A) 7 %; Neutrophils # (A) 5.2 k/uL (1.3-7.7); Neutrophils % (A) 58 %; Non-African American GFR(CKD) >90 (>60 ml/min/1.73 sqM); Platelet Count 235 k/uL (150-450); RBC 5.04 m/uL (3.80-5.40); RDW 12.9 % (11.5-15.5); Sodium 136 mmol/L (137-145); Total Bilirubin 0.5 mg/dL (0.2-1.3); Total Protein 6.1 g/dL (6.3-8.2); WBC 9.1 k/uL (3.8-10.6)
--- NOTE | 2023-06-22 05:28 | ED ---
Abdominal Pain HPI - General Chief Complaint: Abdominal Pain Stated Complaint: Coughing up blood, fever Time Seen by Provider: 06/22/23 01:00 Source: patient Mode of arrival: ambulatory - History of Present Illness Initial Comments: 22-year-old female to male transgender patient who presents to the emergency department with generalized abdominal pain. States that the pain has been going on through the course of today. He has had some nausea with a few episodes of vomiting. States that there was some streaking of blood in his vomit. Patient reports that he thought he was throwing up worms as he felt like they were moving. States that he feels chills and sweats. Denies hemoptysis. No chest pain or shortness of breath. No diarrhea, constipation, black or bloody stools. No dysuria, hematuria or difficulty voiding. Patient is postcholecystectomy. No other alleviating, precipitating or modifying factors - Related Data Home Medications Medication Instructions Recorded Confirmed levETIRAcetam [Keppra] 1,500 mg PO Q12H 07/23/22 09/25/22 Lacosamide [Vimpat] 100 mg PO BID 08/06/22 09/25/22 SUMAtriptan succinate [Imitrex] 50 mg PO DAILY PRN 08/06/22 09/29/22 Testosterone Cypionate 80 mg IM WE 08/06/22 09/29/22 [Depo-Testosterone] Topiramate [Topamax] 200 mg PO HS 08/06/22 09/29/22 Previous Rx's Medication Instructions Recorded Famotidine 20 mg PO DAILY 10 Days #10 tab 08/06/22 Acetaminophen Tab [Tylenol] 650 mg PO Q6H #30 tab 09/29/22 Docusate [Colace] 100 mg PO BID #20 capsule 09/29/22 Ibuprofen [Motrin] 600 mg PO Q6HR PRN #40 tab 09/29/22 oxyCODONE HCL [OxyIR] 5 mg PO Q6H PRN 3 Days #10 tab 09/29/22 Cephalexin [Keflex] 500 mg PO Q8HR #21 cap 10/07/22 Ondansetron Odt [Zofran Odt] 4 mg PO Q8HR PRN #20 tab 06/22/23 Allergies Allergy/AdvReac Type Severity Reaction Status Date / Time No Known Allergies Allergy Verified 06/22/23 00:45 Review of Systems ROS Statement: Those systems with pertinent positive or pertinent negative responses have been documented in the HPI. ROS Other: All systems not noted in ROS Statement are negative. Past Medical History Past Medical History: GERD/Reflux, Seizure Disorder Additional Past Medical History / Comment(s): LAST SEIZURE 07/10/22,MIGRAINE H EADACHES, patient transitioning to male and has been taking testoterone for 2 years, hernia History of Any Multi-Drug Resistant Organisms: None Reported Past Surgical History: Cholecystectomy Additional Past Surgical History / Comment(s): Endoscopy, [place] teeth Past Anesthesia/Blood Transfusion Reactions: No Reported Reaction Past Psychological History: No Psychological Hx Reported Smoking Status: Never smoker Past Alcohol Use History: None Reported Past Drug Use History: None Reported - Past Family History Mother Family Medical History: No Reported History General Exam General appearance: alert, in no apparent distress Head exam: Present: atraumatic, normocephalic, normal inspection Eye exam: Present: normal appearance, PERRL, EOMI. Absent: scleral icterus, conjunctival injection, periorbital swelling ENT exam: Present: normal exam, mucous membranes moist Neck exam: Present: normal inspection. Absent: tenderness, meningismus, lymphadenopathy Respiratory exam: Present: normal lung sounds bilaterally. Absent: respiratory distress, wheezes, rales, rhonchi, stridor Cardiovascular Exam: Present: regular rate, normal rhythm, normal heart sounds. Absent: systolic murmur, diastolic murmur, rubs, gallop, clicks GI/Abdominal exam: Present: soft, tenderness (Generalized), normal bowel sounds. Absent: distended, guarding, rebound, rigid Rectal exam: Present: normal inspection, other (No signs of pinworms) Extremities exam: Present: normal inspection, full ROM, normal capillary refill. Absent: tenderness, pedal edema, joint swelling, calf tenderness Back exam: Present: normal inspection Neurological exam: Present: alert, oriented X3, CN II-XII intact Psychiatric exam: Present: normal affect, normal mood Skin exam: Present: warm, dry, intact, normal color. Absent: rash Course Vital Signs 06/22/23 00:41 Temperature 99.2 F Pulse Rate 60 Respiratory 19 Rate Blood Pressure 151/96 O2 Sat by Pulse 100 Oximetry Medical Decision Making - Medical Decision Making Was pt. sent in by a medical professional or institution (WINSOME Gould, DECISION SUPPORT ANALYST, urgent care, hospital, or retirement...) When possible be specific @ -No Did you speak to anyone other than the patient for history (EMS, parent, family, police, friend...)? What history was obtained from this source @ -I spoke with the patient's father in regards to his symptoms Did you review nursing and triage notes (agree or disagree)? Why? @ -I reviewed and agree with nursing and triage notes Were old charts reviewed (outside hosp., previous admission, EMS record, old EKG, old radiological studies, urgent care reports/EKG's, retirement records)? Report findings @ -No old charts were reviewed Differential Diagnosis (chest pain, altered mental status, abdominal pain women, abdominal pain men, vaginal bleeding, weakness, fever, dyspnea, syncope, headache, dizziness, GI bleed, back pain, seizure, CVA, palpatations, mental health, musculoskeletal)? @ -Differential Abdominal Pain Appendicitis, Cholecystitis, diverticulosis, ischemic bowel, pancreatitis, hepatitis, UTI, gastroenteritis, AAA, incarcerated hernia, bowel obstruction, constipation, inflammatory bowel, hepatitis, peptic ulcer disease, splenic infarction, perforated viscus, vulvitis, ovarian torsion, PID, kidney stone, placenta abruption, this is not meant to be an all-inclusive list EKG interpreted by me (3pts min.). @ -Not done X-rays interpreted by me (1pt min.). @ -None done CT interpreted by me (1pt min.). @ -Yes and demonstrates no acute process U/S interpreted by me (1pt. min.). @ -None done What testing was considered but not performed or refused? (CT, X-rays, U/S, labs)? Why? @ -None What meds were considered but not given or refused? Why? @ -None Did you discuss the management of the patient with other professionals (professionals i.e. WINSOME Gould, DECISION SUPPORT ANALYST, lab, RT, psych nurse, neonatal social worker, ground services instructor, teacher, state patrol officer, disability case manager)? Give summary @ -No Was smoking cessation discussed for >3mins.? @ -No Was critical care preformed (if so, how long)? @ -No Were there social determinants of health that impacted care today? How? (Homelessness, low income, unemployed, alcoholism, drug addiction, transportation, low edu. Level, literacy, decrease access to med. care, detention, rehab)? @ -Female to male transition Was there de-escalation of care discussed even if they declined (Discuss DNR or withdrawal of care, Hospice)? DNR status @ -No What co-morbidities impacted this encounter? (DM, HTN, Smoking, COPD, CAD, Cancer, CVA, ARF, Chemo, Hep., AIDS, mental health diagnosis, sleep apnea, morbid obesity)? @ -None Was patient admitted / discharged? Hospital course, mention meds given and route, prescriptions, significant lab abnormalities, going to OR and other pertinent info. @ -Upon arrival patient was placed into room 19. Thorough history and physical exam was performed. IV is established. Patient was given IV fluids, nausea and pain medications. Lab studies conducted. He did go for a CT of his abdomen which does not demonstrate any acute process. Results are discussed the patient. I did discuss the diagnosis, differential and treatment options. At this time the patient is stable for discharge home. Instructed to follow-up with primary care doctor for further evaluation. Return for any worsening symptoms. Patient was agreeable to plan and discharged in stable condition Undiagnosed new problem with uncertain prognosis? @ -yes Drug Therapy requiring intensive monitoring for toxicity (Heparin, Nitro, Insulin, Cardizem)? @ -No Were any procedures done? @ -No Diagnosis/symptom? @ -Acute abdominal pain, acute nausea and vomiting Acute, or Chronic, or Acute on Chronic? @ -acute Uncomplicated (without systemic symptoms) or Complicated (systemic symptoms)? @ -complicated Side effects of treatment? @ -No Exacerbation, Progression, or Severe Exacerbation? @ -No Poses a threat to life or bodily function? How? (Chest pain, [place], CA, pneumonia, PE, COPD, DKA, ARF, appy, cholecystitis, CVA, Diverticulitis, Homicidal, Suicidal, threat to staff... and all critical care pts) @ -No - Lab Data Result diagrams: 06/22/23 03:21 06/22/23 03:21 Lab Results 06/22/23 06/22/23 06/22/23 Range/Units 03:21 03:21 04:35 WBC 9.1 (3.8-10.6) k/uL RBC 5.04 (3.80-5.40) m/uL Hgb 14.4 (11.4-16.0) gm/dL Hct 43.4 (34.0-46.0) % MCV 86.2 (80.0-100.0) fL MCH 28.6 (25.0-35.0) pg MCHC 33.2 (31.0-37.0) g/dL RDW 12.9 (11.5-15.5) % Plt Count 235 (150-450) k/uL MPV 9.3 Neutrophils % 58 % Lymphocytes % 26 % Monocytes % 7 % Eosinophils % 6 % Basophils % 1 % Neutrophils # 5.2 (1.3-7.7) k/uL Lymphocytes # 2.4 (1.0-4.8) k/uL Monocytes # 0.6 (0-1.0) k/uL Eosinophils # 0.5 (0-0.7) k/uL Basophils # 0.1 (0-0.2) k/uL Sodium 136 L (137-145) mmol/L Potassium 4.0 (3.5-5.1) mmol/L Chloride 100 (98-107) mmol/L Carbon Dioxide 30 (22-30) mmol/L Anion Gap 6 mmol/L BUN 11 (7-17) mg/dL Creatinine 0.84 (0.52-1.04) mg/dL Est GFR (CKD-EPI)AfAm >90 (>60 ml/min/1.73 sqM) Est GFR (CKD-EPI)NonAf >90 (>60 ml/min/1.73 sqM) Glucose 98 (74-99) mg/dL Calcium 9.1 (8.4-10.2) mg/dL Total Bilirubin 0.5 (0.2-1.3) mg/dL AST 37 H (14-36) U/L ALT 45 H (4-34) U/L Alkaline Phosphatase 42 (38-126) U/L Total Protein 6.1 L (6.3-8.2) g/dL Albumin 3.7 (3.5-5.0) g/dL Lipase 109 (23-300) U/L Urine Color Colorless Urine Appearance Clear (Clear) Urine pH 7.0 (5.0-8.0) Ur Specific [place] 1.031 (1.001-1.035) Urine Protein Negative (Negative) Urine Glucose (UA) Negative (Negative) Urine Ketones Negative (Negative) Urine Blood Negative (Negative) Urine Nitrite Negative (Negative) Urine Bilirubin Negative (Negative) Urine Urobilinogen <2.0 (<2.0) mg/dL Ur Leukocyte Esterase Moderate H (Negative) Urine RBC 1 (0-5) /hpf Urine WBC 27 H (0-5) /hpf Ur Squamous Epith Cells 1 (0-4) /hpf Amorphous Sediment Few H (None) /hpf Urine Mucus Rare H (None) /hpf Disposition Clinical Impression: Abdominal pain, Nausea & vomiting Disposition: HOME SELF-CARE Condition: Stable Instructions (If sedation given, give patient instructions): Abdominal Pain (ED) Additional Instructions: Please take the nausea medications as directed. Eat a bland diet. Return for any new or worsening symptoms. Follow-up with your primary care within 1-2 weeks for further evaluation of your symptoms. you may need further imaging to include a HIDA scan or EGD Prescriptions: Ondansetron Odt [Zofran Odt] 4 mg PO Q8HR PRN #20 tab PRN Reason: Nausea Is patient prescribed a controlled substance at d/c from ED?: No Referrals: Ludy Restrepo DO [Primary Care Provider] - 1-2 days Time of Disposition: 06:51
[2023-06-22 05:39] LABS: Amorphous Sediment,Urine Few /hpf; Appearance,Urine Clear (Clear); Bilirubin,Urine Negative (Negative); Blood,Urine Negative (Negative); Color,Urine Colorless; Glucose,Urine (UA) Negative (Negative); Ketones,Urine Negative (Negative); Leukocyte Esterase,Urine Moderate (Negative); Mucus,Urine Rare /hpf; Nitrite,Urine Negative (Negative); Protein,Urine Negative (Negative); RBC,Urine 1 /hpf (0-5); Specific Gravity,Urine 1.031 (1.001-1.035); Squamous Epithelial Cell,Urine 1 /hpf (0-4); Urobilinogen,Urine <2.0 mg/dL (<2.0); WBC,Urine 27 /hpf (0-5)
--- NOTE | 2023-06-22 06:37 | CT ---
EXAM: CT Abdomen and Pelvis With Intravenous Contrast CLINICAL HISTORY: ITS.REASON CT Reason: abdominal pain TECHNIQUE: Axial computed tomography images of the abdomen and pelvis with intravenous contrast. CTDI is 19.1 mGy and DLP is 909.2 mGy-cm. This CT exam was performed using one or more of the following dose reduction techniques: automated exposure control, adjustment of the mA and/or kV according to patient size, and/or use of iterative reconstruction technique. COMPARISON: No relevant prior studies available. FINDINGS: Lung bases: Unremarkable. No mass. No consolidation. ABDOMEN: Liver: Unremarkable. No mass. Gallbladder and bile ducts: Unremarkable. No calcified stones. No ductal dilation. Pancreas: Unremarkable. No mass. No ductal dilation. Spleen: Unremarkable. No splenomegaly. Adrenals: Unremarkable. No mass. Kidneys and ureters: Unremarkable. No solid mass. No hydronephrosis. Stomach and bowel: No evidence of bowel obstruction. Colonic diverticulosis. No evidence of diverticulitis. PELVIS: Appendix: Normal appendix. Bladder: Unremarkable. No mass. Reproductive: Unremarkable as visualized. ABDOMEN and PELVIS: Intraperitoneal space: Unremarkable. No free air. No significant fluid collection. Bones/joints: No acute fracture. No dislocation. Soft tissues: Umbilical hernia containing fat. Vasculature: Unremarkable. No abdominal aortic aneurysm. Lymph nodes: Prominent bilateral inguinal lymph nodes without evidence of enlargement. IMPRESSION: No acute findings on CT abdomen/pelvis with incidental findings as described.
[2023-06-22] MEDS ORDERED: ONDANSETRON 4 MG ODT STARTER PACK 2 TAB BTL PO STA (06:49)
== END 2023-06-22 07:23 | disposition home or self-care (01) ==
LOC: EC 00:33
DX: R10.84 Generalized abdominal pain (principal); R11.2 Nausea with vomiting, unspecified; G40.909 Epilepsy, unspecified, not intractable, without status epilepticus; K21.9 Gastro-esophageal reflux disease without esophagitis; Z79.899 Other long term (current) drug therapy; Z90.49 Acquired absence of other specified parts of digestive tract
CPT/HCPCS: 36415; 80053; 83690; 85025; 81001; 74177; 99284; 96374; 96375; 96361; J2405; J1885; S0119; Q9967

== ENCOUNTER 2023-09-01 00:24 | Emergency (ER) | payer OTHER ==
[2023-09-01] MEDS ORDERED: MORPHINE SULFATE 2 MG/ML SYRINGE IM STA ×2 (00:59→01:38)
[2023-09-01 01:00] VITALS: TEMP 98.6
--- NOTE | 2023-09-01 01:39 | ED ---
Recheck HPI - General Chief Complaint: Recheck/Abnormal Lab/Rx Stated Complaint: Post op complications left side Time Seen by Provider: 09/01/23 00:41 Source: patient, RN notes reviewed Mode of arrival: ambulatory Limitations: no limitations - History of Present Illness Initial Comments: This is a 22-year-old female to male transgender patient who presents to the emergency department for postoperative complications. States that he had gender affirmation surgery this morning, which included a double mastectomy. This was done in [place] with Dr. Mendes. States that later this evening he noticed that he had a lot of bleeding coming from the DMITRY drain site on the left side, and he was unsure if this was normal. He is unsure when his follow-up appointment is next scheduled. He did also have a Watson catheter placed following surgery due to difficulty with urination. States that this also feels uncomfortable and he is unsure if there is a problem with it. MD Complaint: other (Postop bleeding) - Related Data Home Medications Medication Instructions Recorded Confirmed levETIRAcetam [Keppra] 1,500 mg PO Q12H 07/23/22 09/25/22 Lacosamide [Vimpat] 100 mg PO BID 08/06/22 09/25/22 SUMAtriptan succinate [Imitrex] 50 mg PO DAILY PRN 08/06/22 09/29/22 Testosterone Cypionate 80 mg IM WE 08/06/22 09/29/22 [Depo-Testosterone] Topiramate [Topamax] 200 mg PO HS 08/06/22 09/29/22 Previous Rx's Medication Instructions Recorded Famotidine 20 mg PO DAILY 10 Days #10 tab 08/06/22 Acetaminophen Tab [Tylenol] 650 mg PO Q6H #30 tab 09/29/22 Docusate [Colace] 100 mg PO BID #20 capsule 09/29/22 Ibuprofen [Motrin] 600 mg PO Q6HR PRN #40 tab 09/29/22 oxyCODONE HCL [OxyIR] 5 mg PO Q6H PRN 3 Days #10 tab 09/29/22 Cephalexin [Keflex] 500 mg PO Q8HR #21 cap 10/07/22 Ondansetron Odt [Zofran Odt] 4 mg PO Q8HR PRN #20 tab 06/22/23 Allergies Allergy/AdvReac Type Severity Reaction Status Date / Time No Known Allergies Allergy Verified 06/22/23 00:45 Review of Systems ROS Statement: Those systems with pertinent positive or pertinent negative responses have been documented in the HPI. ROS Other: All systems not noted in ROS Statement are negative. Past Medical History Past Medical History: GERD/Reflux, Seizure Disorder Additional Past Medical History / Comment(s): LAST SEIZURE 07/10/22,MIGRAINE HEADACHES, patient transitioning to male and has been taking testoterone for 2 years, hernia History of Any Multi-Drug Resistant Organisms: None Reported Past Surgical History: Cholecystectomy Additional Past Surgical History / Comment(s): Endoscopy, [place] teeth Past Anesthesia/Blood Transfusion Reactions: No Reported Reaction Past Psychological History: No Psychological Hx Reported Smoking Status: Never smoker Past Alcohol Use History: None Reported Past Drug Use History: None Reported - Past Family History Mother Family Medical History: No Reported History General Exam Limitations: no limitations General appearance: alert, in no apparent distress Head exam: Present: atraumatic, normocephalic, normal inspection Respiratory exam: Present: normal lung sounds bilaterally. Absent: respiratory distress, wheezes, rales, rhonchi, stridor Cardiovascular Exam: Present: regular rate, normal rhythm, normal heart sounds. Absent: systolic murmur, diastolic murmur, rubs, gallop, clicks GI/Abdominal exam: Present: other (Double bilateral DMITRY tube drains are in place. Evidence of recent active bleeding around the to DMITRY drain sites on the left- hand side, without any evidence of current active bleeding. DMITRY drains are sutured in place.) Neurological exam: Present: alert, oriented X3, CN II-XII intact Psychiatric exam: Present: normal affect, normal mood Course Vital Signs 09/01/23 09/01/23 00:29 02:07 Temperature 98.6 F Pulse Rate 73 60 Respiratory 16 19 Rate Blood Pressure 149/94 139/90 O2 Sat by Pulse 98 100 Oximetry Medical Decision Making - Medical Decision Making This is a 22-year-old male who presents to the emergency department for postoperative bleeding. Was pt. sent in by a medical professional or institution? @ -No Did you speak to anyone other than the patient for history? @ -No Did you review nursing and triage notes? @ -Yes, and I agree, it is accurate with regards to the patient's symptoms. Were old charts reviewed? @ -No Differential Diagnosis? @ -Differential Postoperative Bleeding: MDITRY tube dislodged, expected bleeding around the tube, venous/arterial injury, this is not meant to be an all-inclusive list. EKG interpreted by me (3pts min.)? @ -Not obtained X-rays interpreted by me (1pt min.)? @ -Not obtained CT interpreted by me (1pt min.)? @ -Not obtained U/S interpreted by me (1pt. min.)? @ -Not obtained What testing was considered but not performed? (CT, X-rays, U/S, labs)? Why? @ -None What meds were considered but not given? Why? @ -None Did you discuss the management of the patient with other professionals? @ -No Did you reconcile home meds? @ -No Was smoking cessation discussed for >3mins.? @ -No Was critical care preformed (if so, how long)? @ -No Were there social determinants of health that impacted care today? How? (Homelessness, low income, unemployed, alcoholism, drug addiction, transportation, low edu. Level, literacy, decrease access to med. care, fpc, rehab)? @ -No Was there de-escalation of care discussed even if they declined? (Discuss DNR or withdrawal of care, Hospice)? @ -No What co-morbidities impacted this encounter? (DM, HTN, Smoking, COPD, CAD, Cancer, CVA, Hep., AIDS, mental health diagnosis, sleep apnea, morbid obesity)? @ -None Was patient admitted / discharged? @ -Discharged. Physical examination reveals that there was recent active bleeding coming from around the DMITRY drain tubes. However, at that point the bleeding had stopped. There were also pieces of gauze around the tubes that had since fallen off. I did replace these. His nurse also evaluated the Watson catheter and found that this was not hooked up correctly and that it was not artemio ining, causing his discomfort. When this was corrected he noted significant relief in this regard. He is instructed to contact his surgeon in the morning regarding the problem for further instruction and he was otherwise discharged home in stable condition. Undiagnosed new problem with uncertain prognosis? @ -None Drug Therapy requiring intensive monitoring for toxicity (Heparin, Nitro, Insulin, Cardizem)? @ -None Were any procedures done? @ -None Diagnosis/symptom? @ -Postoperative bleeding, s/p mastectomy Acute, or Chronic, or Acute on Chronic? @ -Acute Uncomplicated (without systemic symptoms) or Complicated (systemic symptoms)? @ -Uncomplicated Side effects of treatment? @ -None Exacerbation, Progression, or Severe Exacerbation] @ -Not applicable Poses a threat to life or bodily function? @ -No Return precautions reviewed in depth, the patient is instructed to return to the emergency department with any new, worsening, or concerning symptoms. Patient verbalized understanding. This case was discussed in detail with the attending ED physician, Dr. Montoya. Presentation, findings, and treatment plan discussed in detail as well. Disposition Clinical Impression: Post-op bleeding, S/P mastectomy, bilateral Disposition: HOME SELF-CARE Additional Instructions: Return to the emergency department with any new, worsening, or concerning symptoms. Contact your surgeon in the morning for further instruction. Is patient prescribed a controlled substance at d/c from ED?: No Referrals: Ludy Restrepo DO [Primary Care Provider] - 1-2 days
[2023-09-01 02:21] VITALS: BP 139/90; PULSE 60; RESP 19
== END 2023-09-01 02:08 | disposition home or self-care (01) ==
LOC: EC 00:24
DX: L76.22 Postprocedural hemorrhage of skin and subcutaneous tissue following other procedure (principal); Z90.12 Acquired absence of left breast and nipple
CPT/HCPCS: 99283; 96372 ×2; J2270

== ENCOUNTER 2023-09-02 12:30 | Emergency (ER) | payer OTHER ==
[2023-09-02 12:45] VITALS: TEMP 98.5
--- NOTE | 2023-09-02 15:20 | ED ---
General Adult HPI - General Chief complaint: Wound/Laceration Stated complaint: bleeding from incision area Time Seen by Provider: 09/02/23 13:54 Source: patient, family Mode of arrival: wheelchair Limitations: no limitations - History of Present Illness Initial comments: 22-year-old female presenting POD#4 22 bleeding. Patient states that she bled through her binder causing concern and would like to have surgical sites evaluated. No fever or chills. Patient does note that she still has a urinary catheter in and is unsure why. No chest reassurance of breath. No other complaints. - Related Data Home Medications Medication Instructions Recorded Confirmed levETIRAcetam [Keppra] 1,500 mg PO Q12H 07/23/22 09/25/22 Lacosamide [Vimpat] 100 mg PO BID 08/06/22 09/25/22 SUMAtriptan succinate [Imitrex] 50 mg PO DAILY PRN 08/06/22 09/29/22 Testosterone Cypionate 80 mg IM WE 08/06/22 09/29/22 [Depo-Testosterone] Topiramate [Topamax] 200 mg PO HS 08/06/22 09/29/22 Previous Rx's Medication Instructions Recorded Famotidine 20 mg PO DAILY 10 Days #10 tab 08/06/22 Acetaminophen Tab [Tylenol] 650 mg PO Q6H #30 tab 09/29/22 Docusate [Colace] 100 mg PO BID #20 capsule 09/29/22 Ibuprofen [Motrin] 600 mg PO Q6HR PRN #40 tab 09/29/22 oxyCODONE HCL [OxyIR] 5 mg PO Q6H PRN 3 Days #10 tab 09/29/22 Cephalexin [Keflex] 500 mg PO Q8HR #21 cap 10/07/22 Ondansetron Odt [Zofran Odt] 4 mg PO Q8HR PRN #20 tab 06/22/23 Allergies Allergy/AdvReac Type Severity Reaction Status Date / Time No Known Allergies Allergy Verified 06/22/23 00:45 Review of Systems ROS Statement: Those systems with pertinent positive or pertinent negative responses have been documented in the HPI. ROS Other: All systems not noted in ROS Statement are negative. Past Medical History Past Medical History: GERD/Reflux, Seizure Disorder Additional Past Medical History / Comment(s): LAST SEIZURE 07/10/22,MIGRAINE HEADACHES, patient transitioning to male and has been taking testoterone for 2 years, hernia History of Any Multi-Drug Resistant Organisms: None Reported Past Surgical History: Cholecystectomy Additional Past Surgical History / Comment(s): Endoscopy, [place] teeth, bilat mastectomy Past Anesthesia/Blood Transfusion Reactions: No Reported Reaction Past Psychological History: No Psychological Hx Reported Smoking Status: Never smoker Past Alcohol Use History: None Reported Past Drug Use History: None Reported - Past Family History Mother Family Medical History: No Reported History General Exam Limitations: no limitations General appearance: alert, in no apparent distress ENT exam: Present: normal exam Neck exam: Present: normal inspection Respiratory exam: Present: normal lung sounds bilaterally, other (Chest wall examined. Multiple drainage ports. All ports appear clean dry and intact without surrounding warmth, erythema, edema, tenderness palpation. Patient does have a port near the left axilla that does appear to have brisk bright red bleeding however no surrounding evidence of infection.) Cardiovascular Exam: Present: regular rate, normal rhythm GI/Abdominal exam: Present: soft Course Vital Signs 09/02/23 12:42 Temperature 98.5 F Pulse Rate 94 Respiratory 16 Rate Blood Pressure 132/80 O2 Sat by Pulse 98 Oximetry Medical Decision Making - Medical Decision Making Was pt. sent in by a medical professional or institution (WINSOME Gould, ITEM PROCESSOR, urgent care, hospital, or fpc...) When possible be specific @ -No Did you speak to anyone other than the patient for history (EMS, parent, family, police, friend...)? What history was obtained from this source @ -No Did you review nursing and triage notes (agree or disagree)? Why? @ -I reviewed and agree with nursing and triage notes Were old charts reviewed (outside hosp., previous admission, EMS record, old EKG, old radiological studies, urgent care reports/EKG's, fpc records)? Report findings @ -No old charts were reviewed Differential Diagnosis (chest pain, altered mental status, abdominal pain women, abdominal pain men, vaginal bleeding, weakness, fever, dyspnea, syncope, headache, dizziness, GI bleed, back pain, seizure, CVA, palpatations, mental health, musculoskeletal)? @ -Differential Musculoskeletal Muscular strain, contusion, ligament sprain, fracture, arthritis, septic arthritis, bursitis, cellulitis, muscle spasm, nerve compression, DVT, arterial occlusion, herpes zoster, electrolyte abnormality, tumor.... This is not meant to be in all inclusive list EKG interpreted by me (3pts min.). @ -As above X-rays interpreted by me (1pt min.). @ -None done CT interpreted by me (1pt min.). @ -None done U/S interpreted by me (1pt. min.). @ -None done What testing was considered but not performed or refused? (CT, X-rays, U/S, labs)? Why? @ -None What meds were considered but not given or refused? Why? @ -None Did you discuss the management of the patient with other professionals (professionals i.e. DrCruz, PA, ITEM PROCESSOR, lab, RT, psych nurse, social service worker, parachute repairer, teacher, special weapons and tactics officer, human services case manager)? Give summary @ -No Was smoking cessation discussed for >3mins.? @ -No Was critical care preformed (if so, how long)? @ -No Were there social determinants of health that impacted care today? How? (Homel essness, low income, unemployed, alcoholism, drug addiction, transportation, low edu. Level, literacy, decrease access to med. care, fpc, rehab)? @ -No Was there de-escalation of care discussed even if they declined (Discuss DNR or withdrawal of care, Hospice)? DNR status @ -No What co-morbidities impacted this encounter? (DM, HTN, Smoking, COPD, CAD, Cancer, CVA, ARF, Chemo, Hep., AIDS, mental health diagnosis, sleep apnea, morbid obesity)? @ -None Was patient admitted / discharged? Hospital course, mention meds given and route, prescriptions, significant lab abnormalities, going to OR and other pertinent info. @ -Discharge 22-year-old female presenting postoperative day #3 status post double mastectomy for gender firming care with concerns of bleeding from her drainage ports. This was examined. No evidence of infection. Appears to have brisk bright red blood draining near the port. Patient was reassured that this is a normal finding. Patient is already on antibiotics. Patient did have a urinary catheter left in place. This was removed. Patient was able to urinate without difficulty following removal. Patient Discharged home in stable condition and advised follow-up with her plastic surgeon as scheduled. Discussed return precautions with patient and family who verbalizes agreement. Undiagnosed new problem with uncertain prognosis? @ -No Drug Therapy requiring intensive monitoring for toxicity (Heparin, Nitro, Insulin, Cardizem)? @ -No Were any procedures done? @ -No Diagnosis/symptom? @ -Surgical site evaluation Acute, or Chronic, or Acute on Chronic? @ -Acute Uncomplicated (without systemic symptoms) or Complicated (systemic symptoms)? @ -Uncomplicated Side effects of treatment? @ -No Exacerbation, Progression, or Severe Exacerbation? @ -No Poses a threat to life or bodily function? How? (Chest pain, [place], [place], pneumonia, PE, COPD, DKA, ARF, appy, cholecystitis, CVA, Diverticulitis, Homicidal, Su[place] kayy, threat to staff... and all critical care pts) @ -No Disposition Clinical Impression: Aftercare following surgery Disposition: HOME SELF-CARE Condition: Good Additional Instructions: Please return to the Emergency Department if symptoms worsen or any other concerns. Follow up with your surgeon as scheduled. Is patient prescribed a controlled substance at d/c from ED?: No Referrals: Ludy Restrepo DO [Primary Care Provider] - 1-2 days Time of Disposition: 15:24
[2023-09-02 16:36] VITALS: BP 141/87; PULSE 89; RESP 18
== END 2023-09-02 16:45 | disposition home or self-care (01) ==
LOC: EC 12:30
DX: Z48.817 Encounter for surgical aftercare following surgery on the skin and subcutaneous tissue (principal)
CPT/HCPCS: 99283

== ENCOUNTER → 2023-12-04 | Outpatient (CLI) | payer OTHER ==
--- NOTE | 2023-12-04 17:19 | US ---
EXAMINATION TYPE: US abdomen complete DATE OF EXAM: 12/04/2023 COMPARISON: CT 06/22/2023 CLINICAL INDICATION: Female, 23 years old with history of R74.8 ABNORMAL LEVELS OF OTHER SERUM ENZYME S; Abnormal LFTs. nausea. Lower abdominal pain. No other symptoms. Prior Cholecystectomy 1 year ago TECHNIQUE: Multiple sonographic images of the abdomen are obtained. FINDINGS: EXAM MEASUREMENTS: Liver Length: 12.4 cm Gallbladder : Surgically absent CBD: Unable to visualize due to overlying bowel gas Spleen: 10.3 cm Right Kidney: 11.4 x 4.4 x 4.4 cm Left Kidney: 10.8 x 5.1 x 4.6 cm FIELD SERVICES ANALYST NOTES: Limited due to overlying bowel gas Pancreas: Obscured by bowel gas Liver: WNL as best visualized. Portions obscured by bowel gas Gallbladder: Surgically absent Evidence for sonographic Figueroa's sign: No CBD: Obscured by overlying bowel gas Spleen: wnl as best visualized Right Kidney: No hydronephrosis or masses seen as best visualized Left Kidney: No hydronephrosis or masses seen as best visualized. Upper IVC: wnl Abd Aorta: wnl IMPRESSION: Status post cholecystectomy. Unable to assess the bile duct due to bowel gas. Limited views of the li jf show no gross abnormality.
== END | disposition home or self-care (01) ==
LOC: RADUSWWP 08:58
PROVIDERS: ATTEND Internal Medicine Gastroenterology
DX: R14.3 Flatulence (principal); R74.8 Abnormal levels of other serum enzymes; R11.0 Nausea; R79.89 Other specified abnormal findings of blood chemistry; Z90.49 Acquired absence of other specified parts of digestive tract
CPT/HCPCS: 76700

== ENCOUNTER → 2024-01-28 | Outpatient (CLI) | payer OTHER ==
[2024-01-28 16:07] LABS: Basophils # (A) 0.08 X 10*3/uL (0.00-0.10); Basophils % (A) 1.3 %; Eosinophils # (A) 0.35 X 10*3/uL (0.04-0.35); Eosinophils % (A) 5.6 %; HCT 45.7 % (37.2-46.3); HGB 14.1 g/dL (12.0-15.0); Lymphocytes # (A) 0.87 X 10*3/uL (0.90-5.00); MCH 24.5 pg (27.0-32.0); MCHC 30.9 g/dL (32.0-37.0); MCV 79.5 FL (80.0-97.0); Mean Platelet Volume 10.5 FL (9.5-12.2); Monocytes # (A) 0.47 X 10*3/uL (0.20-1.00); Monocytes % (A) 7.6 %; NRBC Per 100 WBC 0 X 10*3/uL (0.00-0.01); Neutrophils # (A) 4.42 X 10*3/uL (1.80-7.70); Platelet Count 268 X 10*3/uL (140-440); RBC 5.75 X 10*6/uL (4.10-5.20); RDW 15.8 % (11.5-14.5); WBC 6.22 X 10*3/uL (4.50-10.00)
[2024-01-28 16:22] LABS: ALT 18 U/L (8-44); AST 21 U/L (13-35); Albumin 4.6 g/dL (3.8-4.9); Albumin/Globulin Ratio 1.77 Ratio (1.60-3.17); Alkaline Phosphatase 69 U/L (41-126); Blood Urea Nitrogen 13.1 mg/dL (9.0-27.0); Calcium 9.8 mg/dL (8.7-10.3); Carbon Dioxide 26.6 mmol/L (21.6-31.8); Chloride 102 mmol/L (96-109); Globulin 2.6 g/dL (1.6-3.3); Glucose 108 mg/dL (70-110); Potassium 4.3 mmol/L (3.5-5.5); Sodium 139 mmol/L (135-145); Total Bilirubin 0.9 mg/dL (0.3-1.2); Total Protein 7.2 g/dL (6.2-8.2)
== END | disposition home or self-care (01) ==
LOC: LABWHC1 12:22
PROVIDERS: ATTEND Internal Medicine Gastroenterology
DX: R74.8 Abnormal levels of other serum enzymes (principal)
CPT/HCPCS: 36415; 80053; 85025

== ENCOUNTER → 2024-02-02 | Outpatient (CLI) | payer OTHER ==
--- NOTE | 2024-02-03 21:10 | XR ---
EXAMINATION TYPE: XR abdomen 1V DATE OF EXAM: 02/02/2024 Comparison: None Clinical History: 23-year-old female R19.4 change in bowel habits Findings: There is mild scattered stool burden. Coronary cholecystectomy clips. Scattered small bowel air. No d ilated small bowel loops. Supine imaging limited for assessment of free air. No suspicious calcificat ions seen. Impression: Nonobstructive bowel gas pattern. No specific radiographic abnormality seen. Status post cholecystect kyrie.
== END | disposition home or self-care (01) ==
LOC: RADXRMAIN 10:59
PROVIDERS: ATTEND Internal Medicine Gastroenterology
DX: R19.4 Change in bowel habit (principal); Z90.49 Acquired absence of other specified parts of digestive tract
CPT/HCPCS: 74018

== ENCOUNTER 2024-04-24 13:55 | Emergency (ER) | payer OTHER ==
[2024-04-24 14:01] VITALS: TEMP 98.2
--- NOTE | 2024-04-24 14:45 | ED ---
Chest Pain HPI - General Chief Complaint: Chest Pain Stated Complaint: Chest/abd pain,SOB Time Seen by Provider: 04/24/24 14:15 Source: patient, RN notes reviewed Mode of arrival: ambulatory Limitations: no limitations - History of Present Illness Initial Comments: 23-year-old transgender male presenting to the ER with chief complaint of chest pain x 2 weeks. He states that the chest pain is substernal and constant. He is also having associated shortness of breath and nonspecific abdominal pain. He does admit some constipation lately but denies diarrhea, nausea, vomiting, fever, chills, cough, URI symptoms, palpitations. He states he has had this before but usually goes away on its own. States the only medications that he takes are two seizure medications. Denies history of cardiac issues. He admits having top surgery several months ago. Denies recent travel, estrogen replacement therapy, leg swelling, history of DVT. He is a non-smoker. - Related Data Home Medications Medication Instructions Recorded Confirmed levETIRAcetam [Keppra] 1,500 mg PO Q12H 07/23/22 04/19/24 Testosterone Cypionate 80 mg IM SA 08/06/22 04/19/24 [Depo-Testosterone] Allergies Allergy/AdvReac Type Severity Reaction Status Date / Time No Known Allergies Allergy Verified 04/19/24 11:55 Review of Systems ROS Statement: Those systems with pertinent positive or pertinent negative responses have been documented in the HPI. ROS Other: All systems not noted in ROS Statement are negative. EKG Findings - EKG Results: EKG: interpreted by MARCOS (EKG reveals normal sinus rhythm with inverted T waves in lead III. Ventricular rate 62 bpm, AK interval 156, QRS duration 98, QT/QTc 365/371.) Past Medical History Past Medical History: GERD/Reflux, Seizure Disorder Additional Past Medical History / Comment(s): LAST SEIZURE 02/27/24 ,MIGRAINE HEADACHES, patient transitioning to male and has been taking testoterone for 3 years, hiatal hernia History of Any Multi-Drug Resistant Organisms: None Reported Past Surgical History: Breast Surgery, Cholecystectomy Additional Past Surgical History / Comment(s): Endoscopy, [place] teeth, bilat mastectomy Past Anesthesia/Blood Transfusion Reactions: No Reported Reaction Past Psychological History: No Psychological Hx Reported Smoking Status: Never smoker Past Alcohol Use History: None Reported Past Drug Use History: Marijuana - Past Family History Mother Family Medical History: No Reported History General Exam Limitations: no limitations General appearance: alert, in no apparent distress Head exam: Present: atraumatic, normocephalic, normal inspection Eye exam: Present: normal appearance, PERRL, EOMI. Absent: scleral icterus, conjunctival injection, periorbital swelling ENT exam: Present: normal exam, mucous membranes moist Neck exam: Present: normal inspection. Absent: tenderness, meningismus, lymphadenopathy Respiratory exam: Present: normal lung sounds bilaterally. Absent: respiratory distress, wheezes, rales, rhonchi, stridor Cardiovascular Exam: Present: regular rate, normal rhythm, normal heart sounds. Absent: systolic murmur, diastolic murmur, rubs, gallop, clicks GI/Abdominal exam: Present: soft, normal bowel sounds. Absent: distended, tenderness, guarding, rebound, rigid Extremities exam: Present: normal inspection, full ROM, normal capillary refill. Absent: tenderness, pedal edema, joint swelling, calf tenderness Neurological exam: Present: alert, oriented X3 Psychiatric exam: Present: normal affect, normal mood Skin exam: Present: warm, dry, intact, normal color. Absent: rash Course Vital Signs 04/24/24 04/24/24 13:59 17:38 Temperature 98.2 F Pulse Rate 63 56 L Respiratory 16 18 Rate Blood Pressure 136/96 97/65 O2 Sat by Pulse 98 99 Oximetry Chest Pain MDM - MDM Was pt. sent in by a medical professional or institution (Dr. PA, CAP CUTTER, urgent care, hospital, or skilled nursing...) When possible be specific @ -No Did you speak to anyone other than the patient for history (EMS, parent, family, police, friend...)? What history was obtained from this source @ -No Did you review nursing and triage notes (agree or disagree)? Why? @ -I reviewed and agree with nursing and triage notes Were old charts reviewed (outside hosp., previous admission, EMS record, old EKG, old radiological studies, urgent care reports/EKG's, skilled nursing records)? Report findings @ -No old charts were reviewed Differential Diagnosis (chest pain, altered mental status, abdominal pain women, abdominal pain men, vaginal bleeding, weakness, fever, dyspnea, syncope, headache, dizziness, GI bleed, back pain, seizure, CVA, palpatations, mental health, musculoskeletal)? @ -Differential Chest Pain: Stable Angina, Unstable Angina, STEMI, NSTEMI Aortic Dissection, Pneumothorax, Musculoskeletal, Esophageal Spasm GERD, Cholecystitis, Pancreatitis, Zoster, this is not meant to be an all-inclusive list. EKG interpreted by me (3pts min.). @ -As above X-rays interpreted by me (1pt min.). @ -Chest x-ray reveals no acute process CT interpreted by me (1pt min.). @ -None done U/S interpreted by me (1pt. min.). @ -None done What testing was considered but not performed or refused? (CT, X-rays, U/S, lab s)? Why? @ -None What meds were considered but not given or refused? Why? @ -Patient declined pain medication Did you discuss the management of the patient with other professionals (professionals i.e. , PA, CAP CUTTER, lab, RT, psych nurse, social media senior associate, screen printing machine operator, teacher, staff weapons officer, classification case manager)? Give summary @ -No Was smoking cessation discussed for >3mins.? @ -No Was critical care preformed (if so, how long)? @ -No Were there social determinants of health that impacted care today? How? (Homelessness, low income, unemployed, alcoholism, drug addiction, transportation, low edu. Level, literacy, decrease access to med. care, snf, rehab)? @ -No Was there de-escalation of care discussed even if they declined (Discuss DNR or withdrawal of care, Hospice)? DNR status @ -No What co-morbidities impacted this encounter? (DM, HTN, Smoking, COPD, CAD, Cancer, CVA, ARF, Chemo, Hep., AIDS, mental health diagnosis, sleep apnea, morbid obesity)? @ -None Was patient admitted / discharged? Hospital course, mention meds given and route, prescriptions, significant lab abnormalities, going to OR and other pertinent info. @ -Patient was discharged. Patient was seen and evaluated for chest pain x 2 w eeks. No acute distress, patient is resting comfortably on stretcher. Vital signs and physical examination are unremarkable. Lab work including CBC, CMP, troponin, lactic acid, lipase, D-dimer are unremarkable. EKG reveals normal sinus rhythm with no ST changes. Chest x-ray reveals no acute process. Upon reevaluation, discussed with patient that there are no signs of emergent etiology causing symptoms at this time. Patient is low risk for ACS. Advise close follow-up with PCP for further evaluation. Strict return parameters discussed and patient shows understanding and agrees with plan. Case was discussed with my attending Dr. Yusuf. Patient discharged in stable condition. Undiagnosed new problem with uncertain prognosis? @ -No Drug Therapy requiring intensive monitoring for toxicity (Heparin, Nitro, Insulin, Cardizem)? @ -No Were any procedures done? @ -No Diagnosis/symptom? @ -Chest pain Acute, or Chronic, or Acute on Chronic? @ -Acute Uncomplicated (without systemic symptoms) or Complicated (systemic symptoms)? @ -Uncomplicated Side effects of treatment? @ -No Exacerbation, Progression, or Severe Exacerbation? @ -No Poses a threat to life or bodily function? How? (Chest pain, [place], [place], pneumonia, PE, COPD, DKA, ARF, appy, cholecystitis, CVA, Diverticulitis, Homicidal, Suicidal, threat to staff... and all critical care pts) @ -Unlikely at this time Disposition Clinical Impression: Chest pain Disposition: HOME SELF-CARE Condition: Stable Instructions (If sedation given, give patient instructions): Chest Pain (ED) Additional Instructions: Please follow-up with PCP for further evaluation. Please return to the Emergen cy Department if symptoms worsen or any other concerns. Is patient prescribed a controlled substance at d/c from ED?: No Referrals: Srinath Solis MD [Primary Care Provider] - 1-2 days Time of Disposition: 17:32
[2024-04-24 15:06] LABS: Basophils # (A) 0.1 k/uL (0-0.2); Basophils % (A) 1 %; Eosinophils # (A) 0.4 k/uL (0-0.7); Eosinophils % (A) 5 %; HCT 48.8 % (34.0-46.0); HGB 15.8 gm/dL (11.4-16.0); Lymphocytes # (A) 1.4 k/uL (1.0-4.8); Lymphocytes % (A) 19 %; MCH 27.1 pg (25.0-35.0); MCHC 32.3 g/dL (31.0-37.0); MCV 83.9 fL (80.0-100.0); Mean Platelet Volume 8.9; Monocytes # (A) 0.5 k/uL (0-1.0); Monocytes % (A) 6 %; Neutrophils % (A) 66 %; Platelet Count 289 k/uL (150-450); RBC 5.82 m/uL (3.80-5.40); RDW 13.1 % (11.5-15.5); WBC 7.6 k/uL (3.8-10.6)
--- NOTE | 2024-04-24 15:08 | XR ---
EXAMINATION TYPE: XR chest 2V DATE OF EXAM: 04/24/2024 3:05 PM CLINICAL INDICATION:Female, 23 years old with history of chest pain; [facility] COMPARISON: Chest radiographs from 08/06/2022 TECHNIQUE: XR chest 2V Frontal view of the chest. FINDINGS: Lungs/Pleura: There is no evidence of pleural effusion, focal consolidation, or pneumothorax. Pulmonary vascularity: Unremarkable. Heart/mediastinum: Cardiomediastinal silhouette is unremarkable. Musculoskeletal: No acute osseous pathology. IMPRESSION: No acute cardiopulmonary disease/process.
[2024-04-24 15:17] LABS: ALT 27 U/L (4-34); AST 32 U/L (14-36); African American GFR (CKD) >90 (>60 ml/min/1.73 sqM); Albumin 4.3 g/dL (3.5-5.0); Alkaline Phosphatase 51 U/L (38-126); Anion Gap 7 mmol/L; Blood Urea Nitrogen 15 mg/dL (7-17); Calcium 9.4 mg/dL (8.4-10.2); Carbon Dioxide 29 mmol/L (22-30); Chloride 103 mmol/L (98-107); Glucose 88 mg/dL (74-99); Lipase 73 U/L (23-300); Non-African American GFR(CKD) >90 (>60 ml/min/1.73 sqM); Potassium 4.2 mmol/L (3.5-5.1); Sodium 139 mmol/L (137-145); Total Bilirubin 0.9 mg/dL (0.2-1.3); Total Protein 6.9 g/dL (6.3-8.2)
[2024-04-24 17:40] VITALS: BP 97/65; PULSE 56; RESP 18
== END 2024-04-24 17:39 | disposition home or self-care (01) ==
LOC: EC 13:55
DX: R07.89 Other chest pain (principal); F12.90 Cannabis use, unspecified, uncomplicated
CPT/HCPCS: 36415; 71046; 80053; 83605; 83690; 84484; 85025; 85379; 87636; 93005; 99285

== ENCOUNTER 2024-05-10 10:38 | Day surgery (SDC) | payer OTHER ==
[2024-05-10] MEDS: IV FLUID CONTINUATION 1,000 ML IV ONE (12:17)
[2024-05-10 12:18] VITALS: RESP 16; TEMP 97.5
[2024-05-10] MEDS: LACTATED RINGERS 1,000 ML IV SCH (12:18)
[2024-05-10] MEDS: LIDOCAINE 1% (10MG/ML) FOR IV START INTRADERMA STA (12:19)
[2024-05-10] MEDS ORDERED: LIDOCAINE 2% (PF) 20 MG/ML 5 ML VIAL ONE (12:37)
[2024-05-10] MEDS ORDERED: PROPOFOL 10 MG/ML 20 ML VIAL IV ONE (12:37)
--- NOTE | 2024-05-10 12:46 | P.PCN ---
Date of Procedure: 05/10/24 Procedure(s) Performed: BRIEF HISTORY: Patient is a 23-year-old, pleasant, white transgender person, skilled endoscopy as a part of evaluation of epigastric discomfort associated intermittent nausea vomiting for the last few weeks duration. He was treated with Protonix, omeprazole and antiemetics with no help. PROCEDURE PERFORMED: Esophagogastroduodenoscopy with biopsy. PREOPERATIVE DIAGNOSIS: Chronic intermittent nausea vomiting. IV sedation per anesthesia. PROCEDURE: After informed consent was obtained, the patient was brought into the endoscopy unit. IV sedation was administered by Anesthesia under continuous monitoring. Initially the Olympus GIF-140 video endoscope was inserted into the mouth. Esophagus intubated without any difficulty. It was gradually advanced into the stomach and duodenum and carefully examined. The bulb and the second part of the duodenum appeared normal. The scope at this time was withdrawn to the stomach, adequately insufflated with air, and upon careful examination, mucosa of the antrum, mild gastritis and biopsies were done from this area. Body, cardia and the fundus appeared normal. The scope was then withdrawn into the esophagus. The GE junction was located at 39 cm from the incisors. Small hiatal hernia noted. The esophagus appeared normal. There were no erosions or ulcerations seen and the patient tolerated the procedure well. IMPRESSION: 1. Mild antral gastritis. 2. Small hiatal hernia but no evidence of esophagitis or peptic ulcer disease. RECOMMENDATIONS: The findings of this examination were discussed with the patient as well as his family. He was advised to follow-up with the biopsy results. Recommend Pepcid 20 mg twice daily and follow antireflux measures..
[2024-05-10 13:08] VITALS: BP 138/82; PULSE 82
== END 2024-05-10 13:43 | disposition home or self-care (01) ==
LOC: ORWHC2ENDO 10:38
PROVIDERS: ATTEND Internal Medicine Gastroenterology
DX: K44.9 Diaphragmatic hernia without obstruction or gangrene
CPT/HCPCS: 81025; 43239; J2704; J2001; 88305

== ENCOUNTER → 2024-06-11 | Outpatient (CLI) | payer OTHER ==
[2024-06-14 06:05] LABS: Levetiracetam (Keppra) 24.2 ug/mL (3.0-60.0)
== END | disposition home or self-care (01) ==
LOC: LABWHC1 11:36
PROVIDERS: ATTEND Psychiatry & Neurology Neurology
DX: G40.309 Generalized idiopathic epilepsy and epileptic syndromes, not intractable, without status epilepticus (principal); R20.0 Anesthesia of skin
CPT/HCPCS: 36415; 80177; 80235; 82525; 82607; 83036; 84630

== ENCOUNTER → 2024-07-19 | Outpatient (CLI) | payer OTHER ==
[2024-07-19 15:38] LABS: T4, Free (Free Thyroxine) 1.11 ng/dL (0.80-1.80)
== END | disposition home or self-care (01) ==
LOC: LABWHC1 11:17
PROVIDERS: ATTEND Psychiatry & Neurology Neurology
DX: G40.309 Generalized idiopathic epilepsy and epileptic syndromes, not intractable, without status epilepticus (principal)
CPT/HCPCS: 36415; 82607; 84439; 84443

== ENCOUNTER → 2024-12-15 | Outpatient (CLI) | payer OTHER ==
[2024-12-15 14:17] VITALS: BP 138/91; PULSE 70; RESP 16; TEMP 98.2
--- NOTE | 2024-12-15 14:57 | P.SLEEP ---
History of Present Illness DATE: 12/15/2024 CONSULTATION/NEW PATIENT EVALUATION HISTORY OF PRESENT ILLNESS/SLEEP-WAKE EVALUATION: 24-year-old patient had been evaluated in the sleep center for possible obstructive sleep apnea hypopnea syndrome. SLEEP SCHEDULE: Usually sleep schedule from 10:30 PM to 7:30 AM 7 days a week. FALLING ASLEEP: Sometimes patient has difficulties with falling asleep. DURING SLEEP: Patient snores and wakes up from sleep 2 times with nocturia. Positive history of movements during the sleep and sweating. No history of hypnogogical hallucinations, sleep paralysis, or cataplexy. DURING THE DAY/WAKE STATE: In the morning patient wake up tired, has difficulties to pay attention, falling asleep during the day, has problems with memory, irritability and depression.. Britt sleepiness scale is in extremely high range of 22. Patient usually does not take naps. PAST MEDICAL HISTORY: Epilepsy last episode 2 months ago. PAST SURGICAL HISTORY: Bilateral mastectomy. MEDICATIONS: Please see below, testosterone. SOCIAL HISTORY: Please see below. FAMILY HISTORY: Please see below. REVIEW OF SYSTEMS: Snoring, multiple awakenings from sleep, sleepiness during the day. No fevers. No double vision. No recent chest pain. No shortness of breath. No abdominal pain. No bleeding episodes. No blood in urine. PHYSICAL EXAMINATION: GENERAL: A pleasant patient without any distress. VITAL SIGNS: Please see below, weight 193 pounds, BMI 34.1. HEENT: PERRLA, EOMI. Evaluation of oropharynx showed tongue protrudes midline, low position of soft palate Mallampati 2, significant hypertrophy of tonsils. NECK: Supple. No JVD. Thyroid is not palpable. 15 inches in circumference. LUNGS: Clear to percussion and to auscultation. Good air exchange. No wheezing or rhonchi. HEART: S1, S2 regular. No murmurs, gallops or rubs. ABDOMEN: Soft and nontender. Bowel sounds are present. No organomegaly appreciated. EXTREMITIES: No clubbing or cyanosis. REGULATOR TESTER: Awake, alert, and oriented x3. Cranial nerves 2 to 7 intact. There is no fasciculation or atrophy noted. No focal deficits observed. ASSESSMENT: 1. Snoring, multiple awakenings from sleep, retrognathia 1 to 2 mm, small oropharyngeal airspace mostly secondary to hypertrophy of tonsils, sleepiness. Obstructive sleep apnea hypopnea syndrome. 2. Significant amount of movements during the sleep, possibly periodic limb movements. 3. Significant sleepiness with Britt Sleepiness Scale of 22 dictate necessity to include narcolepsy type II and idiopathic hypersomnia differential diagnosis. 4. Epilepsy last episode 2 months ago. 5. Hypertrophy of tonsils. 6 . Status post bilateral mastectomy. 7. Obesity, BMI 34.1 PLAN: 1. Polysomnogram for evaluation of patient breathing during the sleep and possible periodic limb movements with following multiple sleep latency test for differential diagnosis with the narcolepsy type II and idiopathic hypersomnia if diagnostic polysomnogram will be negative for obstructive sleep apnea hypopnea syndrome. 2. Following plan after reading sleep study. 3. Preferable position during sleep on the side. 4. No driving if patient feels any sleepiness. Patient is aware of civil and criminal liability for unsafe driving. 5. Sleep hygiene with regular sleep time for at least 7.5-8 hours. 6. Watching and losing weight. Thank you very much for referring this patient for consultation. Sincerely, Murali Roman MD, PhD, FAASM. Diplomat of [place] [employer], Sleep Medicine Board by [employer] Wire Twister of [facility] [place] cc: Mary Beavers MD Past Medical History Past Medical History: GERD/Reflux, Seizure Disorder Additional Past Medical History / Comment(s): LAST SEIZURE 02/27/24, MIGRAINE HEADACHES, patient transitioning to male and has been taking testoterone for 3 years, hiatal hernia History of Any Multi-Drug Resistant Organisms: None Reported Past Surgical History: Breast Surgery, Cholecystectomy Additional Past Surgical History / Comment(s): Endoscopy, [place] teeth, bilat mastectomy, epilepsy Past Anesthesia/Blood Transfusion Reactions: No Reported Reaction Past Psychological History: No Psychological Hx Reported Smoking Status: Never smoker Past Alcohol Use History: Occasional Additional Past Alcohol Use History / Comment(s): instructed no alcohol 24 hrs prior to proc. Past Drug Use History: Marijuana Additional Drug Use History / Comment(s): uses marijuana on occasion-instructed to refrain from use for at least 24 hours prior to procedure - Past Family History Mother Family Medical History: No Reported History, Hypertension Additional Family Medical History / Comment(s): headaches Father Additional Family Medical History / Comment(s): diverticulosis Medications and Allergies Home Medications Medication Instructions Recorded Confirmed Type levETIRAcetam [Keppra] 1,500 mg PO BID 07/23/22 12/15/24 History Testosterone Cypionate 80 mg IM SA 08/06/22 12/15/24 History [Depo-Testosterone] Lacosamide 100 mg PO BID 05/06/24 12/15/24 History Allergies Allergy/AdvReac Type Severity Reaction Status Date / Time No Known Allergies Allergy Verified 05/10/24 12:07 Physical Exam Vitals: Vital Signs Temp Pulse Resp BP Pulse Ox 12/15/24 14:17 98.2 F 70 16 138/91 97 Intake and Output 12/14/24 12/15/24 12/15/24 22:59 06:59 14:59 Other: Weight 87.543 kg Sleep Note - Sleep Data ESS Total: 22 - Sleep Note Sleep Note: Temperature: 98.2 F Pulse Rate: 70 Respiratory Rate: 16 Blood Pressure: 138/91 SpO2: 97 Height: 5 ft 3 in Weight: 87.543 kg BMI: Neck Circumference: 15
== END ==
LOC: 3 N SLEEP 14:01
PROVIDERS: ATTEND Internal Medicine
DX: G47.33 Obstructive sleep apnea (adult) (pediatric) (principal); E66.9 Obesity, unspecified; G40.909 Epilepsy, unspecified, not intractable, without status epilepticus; J35.1 Hypertrophy of tonsils; F12.90 Cannabis use, unspecified, uncomplicated; Z68.34 Body mass index [BMI] 34.0-34.9, adult; Z90.13 Acquired absence of bilateral breasts and nipples
CPT/HCPCS: 99211

== ENCOUNTER 2025-01-30 19:48 | Outpatient (CLI) | payer OTHER ==
[2025-01-31 21:48] LABS: Urine Alcohol Negative (Negative); Urine Barbiturate Negative (Negative); Urine Cocaine Negative (Negative); Urine Methadone Negative (Negative); Urine Opiates Negative (Negative); Urine Phencyclidine Negative (Negative)
--- NOTE | 2025-02-09 14:12 | P.PCN ---
Description of Procedure: POLYSOMNOGRAPHY REPORT PROCEDURE(S)/DATE(S): Polysomnography 01/30/2025 CLINICAL: Patient has been seen in the sleep center for evaluation of obstructive sleep apnea-hypopnea syndrome. Please see my consultation. Sleep study has been done for evaluation of patient breathing during the sleep. PROCEDURE: The standard montage for clinical polysomnography included the electroencephalogram, the electrooculogram, the mentalis surface electromyography and Lead II cardiography. The respiratory battery consisted of measurements of nasal/buccal air flow, pressure transducer measurements from nose, thoracic and/or abdominal effort and intercostal surface electromyography. Video monitoring has been done to check for any parasomnia events. Nocturnal oxyhemoglobin saturations were obtained by finger oximetry. Step-tillman titration with positive airway pressure was utilized to control the respiratory events, if necessary. RESULTS: During the diagnostic sleep study sleep efficiency was decreased to 80.5%. Latency to sleep onset was prolonged to 78 min. Sleep architecture showed stage NI was short 1.9%, Delta sleep was in normal high range 32.5%, REM sleep was slightly decreased to 17.0%. Respiratory channel showed 0 obstructive apneas, 0 mixed apneas, 1 central apneas, 1 hypopneas with lowest oxygen level 92%. Total apnea hypopnea index was 0.3. Heart rate was in the range between 60 and 74, average 66. EMG showed 0 periodic limb movements per hour. Multiple sleep latency test have been done on the following day, consisted from 5 naps. Mean sleep latency was pathologically short 4.5 minutes, 2 sleep onset REM periods have been documented. IMPRESSIONS: 1. No significant respiratory abnormalities have been documented during the sleep study, normal oxygenation during sleep. 2. No significant periodic limb movements have been documented. 3. Multiple sleep latency test confirmed pathological sleepiness with mean sleep latency 4.5 minutes and 2 sleep onset REM periods which indicate diagnosis of narcolepsy. Please see other impressions from consultation PLAN: 1. I will see patient for follow-up visit to explain results of the tests and recommendations. 2. Daytime naps permitted 3. Sleep hygiene with regular time in bed for at least 7-1/2 hours. 4. No driving if feeling sleepiness. Thank you very much for allowing me to participate in the management of your patient. Sincerely, Murali Roman MD, PhD, FAASM. Diplomat of [employer] [employer], Sleep Medicine Board by [employer] Instrument Calibrator of [facility] [place] cc: Mary Beavers MD
== END 2025-01-31 17:32 | disposition home or self-care (01) ==
LOC: EDSEX → 3 N SLEEP 19:48
PROVIDERS: ATTEND Internal Medicine
DX: G47.33 Obstructive sleep apnea (adult) (pediatric) (principal); G47.419 Narcolepsy without cataplexy; F12.90 Cannabis use, unspecified, uncomplicated
CPT/HCPCS: 80306; 95805; 95810

== ENCOUNTER 2025-02-10 15:18 | Emergency (ER) | payer OTHER ==
[2025-02-10 15:25] VITALS: RESP 18
--- NOTE | 2025-02-10 16:21 | ED ---
Abdominal Pain HPI - General Chief Complaint: Abdominal Pain Stated Complaint: constipation Time Seen by Provider: 02/10/25 16:03 Source: patient, RN notes reviewed, old records reviewed Mode of arrival: ambulatory Limitations: no limitations - History of Present Illness Initial Comments: This is a 24-year-old male to ER with abdominal pain suprapubic and periumbilical abdominal pain severe decreased bowel movements times a week. Patient is able to urinate able to drink but does have nausea does feel abdominal bloating and distention no surgical history no travel history no sick contacts no other founders or similar complaints. Patient himself has no medical history takes no medications no drugs or alcohol MD Complaint: abdominal pain -: week(s) Location: periumbilical, suprapubic Radiation: suprapubic Migration to: suprapubic Severity: moderate Severity scale (1-10): 6 Quality: stabbing, aching Consistency: constant Improves With: nothing Worsens With: eating Associated Symptoms: nausea Treatments Prior to Arrival: other - Related Data Home Medications Medication Instructions Recorded Confirmed levETIRAcetam [Keppra] 1,500 mg PO BID 07/23/22 12/15/24 Testosterone Cypionate 80 mg IM SA 08/06/22 12/15/24 [Depo-Testosterone] Lacosamide 100 mg PO BID 05/06/24 12/15/24 Allergies Allergy/AdvReac Type Severity Reaction Status Date / Time No Known Allergies Allergy Verified 05/10/24 12:07 Review of Systems ROS Statement: Those systems with pertinent positive or pertinent negative responses have been documented in the HPI. ROS Other: All systems not noted in ROS Statement are negative. Past Medical History Past Medical History: GERD/Reflux, Seizure Disorder Additional Past Medical History / Comment(s): LAST SEIZURE 02/27/24, MIGRAINE HEADACHES, patient transitioning to male and has been taking testoterone for 3 years, hiatal hernia History of Any Multi-Drug Resistant Organisms: None Reported Past Surgical History: Breast Surgery, Cholecystectomy Additional Past Surgical History / Comment(s): Endoscopy, [place] teeth, bilat mastectomy, epilepsy Past Anesthesia/Blood Transfusion Reactions: No Reported Reaction Past Psychological History: No Psychological Hx Reported Smoking Status: Never smoker Past Alcohol Use History: Occasional Past Drug Use History: Marijuana - Past Family History Mother Family Medical History: No Reported History, Hypertension Additional Family Medical History / Comment(s): headaches Father Additional Family Medical History / Comment(s): diverticulosis General Exam Limitations: no limitations General appearance: alert, in no apparent distress Head exam: Present: atraumatic, normocephalic, normal inspection Eye exam: Present: normal appearance, PERRL, EOMI. Absent: scleral icterus, conjunctival injection, periorbital swelling ENT exam: Present: normal exam, mucous membranes moist Neck exam: Present: normal inspection. Absent: tenderness, meningismus, lymphadenopathy Respiratory exam: Present: normal lung sounds bilaterally. Absent: respiratory distress, wheezes, rales, rhonchi, stridor Cardiovascular Exam: Present: regular rate, normal rhythm, normal heart sounds. Absent: systolic murmur, diastolic murmur, rubs, gallop, clicks GI/Abdominal exam: Present: soft, tenderness, normal bowel sounds. Absent: distended, guarding, rebound, rigid Extremities exam: Present: normal inspection, full ROM, normal capillary refill. Absent: tenderness, pedal edema, joint swelling, calf tenderness Back exam: Present: normal inspection Neurological exam: Present: alert, oriented X3, CN II-XII intact Psychiatric exam: Present: normal affect, normal mood Skin exam: Present: warm, dry, intact, normal color. Absent: rash Course Vital Signs 02/10/25 15:22 Temperature 97.8 F Pulse Rate 93 Respiratory 18 Rate Blood Pressure 138/90 O2 Sat by Pulse 96 Oximetry - Reevaluation(s) Reevaluation #1: 02/10/25 16:27 Medical records reviewed Reevaluation #2: 02/10/25 20:24 Symptoms resolved after Watson catheter initiation Reevaluation #3: 02/10/25 20:24 Patient informed of results and questions answered Reevaluation #4: Was pt. sent in by a medical professional or institution (, PA, GAS ENGINE PERFORMANCE ENGINEER, urgent care, hospital, or [facility]...) When possible be specific @ -no Did you speak to anyone other than the patient for history (EMS, parent, family, police, friend...)? What history was obtained from this source @ -no Did you review nursing and triage notes (agree or disagree)? Why? @ -agree Are old charts reviewed (outside hosp., previous admission, EMS record, old EKG, old radiological studies, urgent care reports/EKG's, [facility] records)? Report findings @ -yes Differential Diagnosis (chest pain, altered mental status, abdominal pain women, abdominal pain men, vaginal bleeding, weakness, fever, dyspnea, syncope, headache, dizziness, GI bleed, back pain, seizure, CVA, palpatations, mental health, musculoskeletal)? @ -prior EKG interpreted by me (3pts min.). @ -yes X-rays interpreted by me (1pt min.). @ -yes negative for acute disease CT interpreted by me (1pt min.). @ -no U/S interpreted by me (1pt. min.). @ -no What testing was considered but not performed or refused? (CT, X-rays, U/S, labs)? Why? @ -none What meds were considered but not given or refused? Why? @ -none Did you discuss the management of the patient with other professionals (professionals i.e. , PA, GAS ENGINE PERFORMANCE ENGINEER, lab, RT, psych nurse, social media marketing analyst, emergency vehicle driver, teacher, financial aids officer, disease case manager)? Give summary @ -no Was smoking cessation discussed for >3mins.? @ -no Was critical care preformed (if so, how long)? @ -no Were there social determinants of health that impacted care today? How? (Homelessness, low income, unemployed, alcoholism, drug addiction, transportation, low edu. Level, literacy, decrease access to med. care, [place] [facility], rehab)? @ -none Was there de-escalation of care discussed even if they declined (Discuss DNR or withdrawal of care, Hospice)? DNR status @ -no What co-morbidities impacted this encounter? (DM, HTN, Smoking, COPD, CAD, Cancer, CVA, ARF, Chemo, Hep., AIDS, mental health diagnosis, sleep apnea, morbid obesity)? @ -none Was patient admitted / discharged? Hospital course, mention meds given and route, prescriptions, significant lab abnormalities, going to OR and other pertinent info. @ - Undiagnosed new problem with uncertain prognosis? @ -no Drug Therapy requiring intensive monitoring for toxicity (Heparin, Nitro, Insulin, Cardizem)? @ -no Were any procedures done? @ -no Diagnosis/symptom? @ - Acute, or Chronic, or Acute on Chronic? @ -Acute Uncomplicated (without systemic symptoms) or Complicated (systemic symptoms)? @ -Complicated Side effects of treatment? @ -no Exacerbation, Progression, or Severe Exacerbation? @ -exacerbation Poses a threat to life or bodily function? How? (Chest pain, [place], [place], pneumonia, PE, COPD, DKA, ARF, appy, cholecystitis, CVA, Diverticulitis, Homicidal, Suicidal, threat to staff... and all critical care pts) @ -yes Reevaluation #5: Differential Abdominal Pain Men: Appendicitis, cholecystitis, diverticulosis, ischemic bowel, pancreatitis, hepatitis, UTI, gastroenteritis, AAA, incarcerated hernia, bowel obstruction, constipation, inflammatory bowel, hepatitis, peptic ulcer disease, splenic infarction, perforated viscus, testicular torsion, this is not meant to be an all-inclusive list Medical Decision Making - Medical Decision Making 24 male with significant abdominal pain and significant urinary retention noted, at this point patient has straight cath with resolution of symptoms and can be discharged home will return if symptoms recur recur - Lab Data Result diagrams: 02/10/25 16:34 02/10/25 16:34 Lab Results 02/10/25 02/10/25 Range/Units 16:34 16:34 WBC 14.87 H (4.50-10.00) 10*3/uL RBC 5.95 H (4.40-5.60) 10*6/uL Hgb 17.0 (13.0-17.0) g/dL Hct 49.5 (39.6-50.0) % MCV 83.2 (80.0-97.0) fL MCH 28.6 (27.0-32.0) pg MCHC 34.3 (32.0-37.0) g/dL Plt Count 394 (140-440) 10*3/uL MPV 10.5 (9.5-12.2) fL Immature Gran % (Auto) 0.4 % Neutrophils % 75.3 % Lymphocytes % 14.5 % Monocytes % 8.4 % Eosinophils % 0.7 % Basophils % 0.7 % Immature Gran # 0.06 H (0.00-0.04) 10*3/uL Neutrophils # 11.20 H (1.80-7.70) 10*3/uL Lymphocytes # 2.15 (0.90-5.00) 10*3/uL Monocytes # 1.25 H (0.20-1.00) 10*3/uL Eosinophils # 0.11 (0.04-0.35) 10*3/uL Basophils # 0.10 (0.00-0.10) 10*3/uL Sodium 147 H (137-145) mmol/L Potassium 4.2 (3.5-5.1) mmol/L Chloride 104 (98-107) mmol/L Carbon Dioxide 25 (22-30) mmol/L Anion Gap 18 mmol/L BUN 10 (9-20) mg/dL Creatinine 0.88 (0.66-1.25) mg/dL Est GFR (CKD-EPI)AfAm >90 (>60 ml/min/1.73 sqM) Est GFR (CKD-EPI)NonAf >90 (>60 ml/min/1.73 sqM) Glucose 84 (74-99) mg/dL Calcium 9.8 (8.4-10.2) mg/dL Phosphorus 5.1 H (2.5-4.5) mg/dL Magnesium 2.2 (1.6-2.3) mg/dL Total Bilirubin 0.9 (0.2-1.3) mg/dL AST 34 (17-59) U/L ALT 44 (4-49) U/L Alkaline Phosphatase 63 (38-126) U/L Total Protein 8.4 H (6.3-8.2) g/dL Albumin 5.3 H (3.5-5.0) g/dL Amylase 46 (30-110) U/L Lipase 83 (23-300) U/L - Radiology Data Radiology results: report reviewed (CT of the abdomen on pelvis positive for urinary retention), image reviewed Disposition Clinical Impression: Urinary retention Disposition: HOME SELF-CARE Condition: Good Instructions (If sedation given, give patient instructions): Urinary Retention in Men (ED), Acute Urinary Retention in Women (ED) Is patient prescribed a controlled substance at d/c from ED?: No Referrals: None,Stated [Primary Care Provider] - 1-2 days Time of Disposition: 20:20
[2025-02-10] MEDS: SODIUM CHLORIDE 0.9% 1,000 ML IV ONE (16:41)
[2025-02-10] MEDS: KETOROLAC 15 MG/ML 1 ML VIAL IVP STA (16:43)
[2025-02-10] MEDS: ONDANSETRON 4 MG/2 ML VIAL IVP STA (16:43)
[2025-02-10 16:44] LABS: Basophils % (A) 0.7 %; Eosinophils # (A) 0.11 10*3/uL (0.04-0.35); Eosinophils % (A) 0.7 %; HCT 49.5 % (39.6-50.0); Lymphocytes # (A) 2.15 10*3/uL (0.90-5.00); Lymphocytes % (A) 14.5 %; MCH 28.6 pg (27.0-32.0); MCHC 34.3 g/dL (32.0-37.0); MCV 83.2 fL (80.0-97.0); Mean Platelet Volume 10.5 fL (9.5-12.2); Monocytes # (A) 1.25 10*3/uL (0.20-1.00); Monocytes % (A) 8.4 %; Neutrophils % (A) 75.3 %; Platelet Count 394 10*3/uL (140-440); RBC 5.95 10*6/uL (4.40-5.60); RDW 12.5 % (11.5-14.5); WBC 14.87 10*3/uL (4.50-10.00)
[2025-02-10 17:05] LABS: ALT 44 U/L (4-49); AST 34 U/L (17-59); African American GFR (CKD) >90 (>60 ml/min/1.73 sqM); Albumin 5.3 g/dL (3.5-5.0); Alkaline Phosphatase 63 U/L (38-126); Amylase 46 U/L (30-110); Anion Gap 18 mmol/L; Blood Urea Nitrogen 10 mg/dL (9-20); Calcium 9.8 mg/dL (8.4-10.2); Carbon Dioxide 25 mmol/L (22-30); Chloride 104 mmol/L (98-107); Glucose 84 mg/dL (74-99); Lipase 83 U/L (23-300); Magnesium 2.2 mg/dL (1.6-2.3); Non-African American GFR(CKD) >90 (>60 ml/min/1.73 sqM); Phosphorus 5.1 mg/dL (2.5-4.5); Potassium 4.2 mmol/L (3.5-5.1); Sodium 147 mmol/L (137-145); Total Bilirubin 0.9 mg/dL (0.2-1.3); Total Protein 8.4 g/dL (6.3-8.2)
--- NOTE | 2025-02-10 18:43 | CT ---
EXAMINATION TYPE: CT abdomen pelvis w con DATE OF EXAM: 02/10/2025 6:06 PM COMPARISON: 06/22/2023 CLINICAL INDICATION: Male, 24 years old with history of abdominal pain; ABDOMINAL PAIN AND CONSTIPATI ON TECHNIQUE: Axial CT abdomen pelvis w con;Sagittal and coronal reformats were created on a separate w orkstation. Contrast used:100ml mL of Isovue 300 with IV Contrast, (none if empty) Oral contrast used: without Oral Contrast (none if empty) CT DLP: 956.6 mGycm, Automated exposure control for dose reduction was used. FINDINGS: LOWER CHEST: Unremarkable ABDOMEN LIVER: Unremarkable GALLBLADDER AND BILE DUCTS: The gallbladder is surgically absent. PANCREAS: Unremarkable. SPLEEN: Unremarkable. ADRENAL GLANDS: Unremarkable. KIDNEYS AND URETERS: Moderate bilateral hydroureteronephrosis with distended urinary bladder. Small f luid collection along the right inferior medial kidney possibly from ruptured calyx. PELVIS BLADDER: Markedly distended measuring 11.8 x 15.0 x 10.8. REPRODUCTIVE: Unremarkable. ABDOMEN & PELVIS STOMACH AND BOWEL: No significant stool burden in the colon. No evidence of bowel obstruction. Append ix is normal. PERITONEUM/RETROPERITONEUM: No evidence of pneumoperitoneum or free fluid. VASCULATURE: No evidence of aortic aneurysm. MUSCULOSKELETAL: No acute osseous abnormalities LYMPH NODES: No gross evidence for lymphadenopathy. SOFT TISSUE/ABDOMINAL WALL: Fat-containing umbilical hernia. IMPRESSION: 1. Moderate bilateral hydroureteronephrosis with distended urinary bladder. Correlate for bladder ou tlet obstruction versus more likely interval from last void. Possible ruptured calyx on the right wit h some fluid layering along the inferior medial right kidney. Consider Watson catheter decompression. 2. No additional evidence for process to explain patient's pain. The appendix is normal. No signific ant stool burden. 3. Cholecystectomy changes. [facility], , 02/10/2025 6:41 PM
[2025-02-10 20:46] VITALS: BP 133/92; PULSE 84; TEMP 98.1
== END 2025-02-10 20:59 | disposition home or self-care (01) ==
LOC: EDSEX → EC 15:18
DX: R33.9 Retention of urine, unspecified (principal)
CPT/HCPCS: 36415; 80053; 82150; 83690; 83735; 84100; 85025; 74177; 99284; 96374; 96375; 96361; J2405; J1885

== ENCOUNTER 2025-02-12 19:21 | Emergency (ER) | payer OTHER ==
[2025-02-12 19:50] VITALS: TEMP 98.1
--- NOTE | 2025-02-12 20:54 | XR ---
EXAMINATION TYPE: XR KUB DATE OF EXAM: 02/12/2025 8:46 PM COMPARISON: None. CLINICAL INDICATION: Male, 24 years old with history of pain, constipation, TECHNIQUE: Single view of the abdomen. FINDINGS: Small bowel demonstrates no evidence for dilatation or air fluid levels. Gas and fecal material is seen in non-distended colon. No convincing evidence for pneumoperitoneum. No unusual calcifications. The lung bases are clear. The osseous structures are intact. IMPRESSION: 1. Overall nonobstructive bowel gas pattern. [facility], , 02/12/2025 8:52 PM
[2025-02-12 21:39] LABS: Basophils # (A) 0.08 10*3/uL (0.00-0.10); Basophils % (A) 0.8 %; Eosinophils # (A) 0.51 10*3/uL (0.04-0.35); Eosinophils % (A) 5.2 %; HCT 44.6 % (39.6-50.0); HGB 15.3 g/dL (13.0-17.0); Lymphocytes # (A) 1.55 10*3/uL (0.90-5.00); Lymphocytes % (A) 15.8 %; MCH 29.1 pg (27.0-32.0); MCHC 34.3 g/dL (32.0-37.0); Mean Platelet Volume 10.8 fL (9.5-12.2); Monocytes # (A) 0.97 10*3/uL (0.20-1.00); Monocytes % (A) 9.9 %; Platelet Count 306 10*3/uL (140-440); RBC 5.25 10*6/uL (4.40-5.60); RDW 11.9 % (11.5-14.5); WBC 9.84 10*3/uL (4.50-10.00)
[2025-02-12 21:50] LABS: ALT 34 U/L (4-49); AST 28 U/L (17-59); African American GFR (CKD) >90 (>60 ml/min/1.73 sqM); Albumin 4.4 g/dL (3.5-5.0); Alkaline Phosphatase 58 U/L (38-126); Anion Gap 10 mmol/L; Blood Urea Nitrogen 16 mg/dL (9-20); Calcium 9.7 mg/dL (8.4-10.2); Carbon Dioxide 27 mmol/L (22-30); Chloride 102 mmol/L (98-107); Glucose 92 mg/dL (74-99); Non-African American GFR(CKD) >90 (>60 ml/min/1.73 sqM); Potassium 3.8 mmol/L (3.5-5.1); Sodium 139 mmol/L (137-145); Total Bilirubin 0.9 mg/dL (0.2-1.3); Total Protein 7.2 g/dL (6.3-8.2)
[2025-02-12] MEDS: KETOROLAC 15 MG/ML 1 ML VIAL IVP STA (22:08)
--- NOTE | 2025-02-12 22:11 | ED ---
Male Urogenital HPI - General Source: patient Mode of arrival: ambulatory Limitations: no limitations <Carlee Yadav - Last Filed: 02/14/25 19:22> - General Source: patient, RN notes reviewed, old records reviewed Mode of arrival: ambulatory Limitations: no limitations <Dorian Yusuf - Last Filed: 02/15/25 03:13> - General Chief complaint: Urogenital Stated complaint: abdominal pain Time Seen by Provider: 02/12/25 20:07 - History of Present Illness Initial comments: 24-year-old transgender male presenting with chief complaint of pelvic pain. Patient was here 2 days ago with pain, CT revealed urinary retention. Patient was straight cathed and discharged. Patient later could not urinate on his own again so he went to a different ER and had a Watson catheter placed yesterday. Today the patient is having lower abdominal pain as well as pain near the urethral meatus. Seems to be having good urinary output. No noticeable blood in the bag. No fever. No vomiting. Has been having constipation. (Carlee Yadav) 24 presents to the ER today for evaluation of persistent abdominal pain and pelvic pain with recent urinary retention and Watson placement (Dorian Yusuf) - Related Data Home Medications Medication Instructions Recorded Confirmed levETIRAcetam [Keppra] 1,500 mg PO BID 07/23/22 12/15/24 Testosterone Cypionate 80 mg IM SA 08/06/22 12/15/24 [Depo-Testosterone] Lacosamide 100 mg PO BID 05/06/24 12/15/24 Allergies Allergy/AdvReac Type Severity Reaction Status Date / Time No Known Allergies Allergy Verified 02/13/25 18:35 Review of Systems ROS Other: All systems not noted in ROS Statement are negative. <Carlee Yadav - Last Filed: 02/14/25 19:22> ROS Other: All systems not noted in ROS Statement are negative. <Dorian Yusuf - Last Filed: 02/15/25 03:13> ROS Statement: Those systems with pertinent positive or pertinent negative responses have been documented in the HPI. Past Medical History Past Medical History: GERD/Reflux, Seizure Disorder Additional Past Medical History / Comment(s): LAST SEIZURE 02/27/24, MIGRAINE HEADACHES, patient transitioning to male and has been taking testoterone for 3 years, hiatal hernia History of Any Multi-Drug Resistant Organisms: None Reported Past Surgical History: Breast Surgery, Cholecystectomy Additional Past Surgical History / Comment(s): Endoscopy, T[place] teeth, bilat mastectomy, epilepsy Past Anesthesia/Blood Transfusion Reactions: No Reported Reaction Past Psychological History: No Psychological Hx Reported Smoking Status: Never smoker Past Alcohol Use History: Occasional Past Drug Use History: Marijuana - Past Family History Mother Family Medical History: No Reported History, Hypertension Additional Family Medical History / Comment(s): headaches Father Additional Family Medical History / Comment(s): diverticulosis <Carlee Yadav - Last Filed: 02/14/25 19:22> General Exam Limitations: no limitations General appearance: alert, in no apparent distress Head exam: Present: atraumatic, normocephalic, normal inspection Eye exam: Present: normal appearance, EOMI Neck exam: Present: normal inspection. Absent: meningismus Respiratory exam: Absent: respiratory distress Cardiovascular Exam: Present: regular rate GI/Abdominal exam: Present: soft, tenderness (Lower abdomen). Absent: distended, guarding, rebound, rigid Neurological exam: Present: alert, oriented X3 Psychiatric exam: Present: normal affect, normal mood Skin exam: Present: warm, dry, normal color <Carlee Yadav - Last Filed: 02/14/25 19:22> General appearance: alert, in no apparent distress Head exam: Present: atraumatic, normocephalic, normal inspection Eye exam: Present: normal appearance, PERRL, EOMI. Absent: scleral icterus, conjunctival injection, periorbital swelling ENT exam: Present: normal exam, mucous membranes moist Neck exam: Present: normal inspection. Absent: tenderness, meningismus, lymphadenopathy Respiratory exam: Present: normal lung sounds bilaterally. Absent: respiratory distress, wheezes, rales, rhonchi, stridor Cardiovascular Exam: Present: regular rate, normal rhythm, normal heart sounds. Absent: systolic murmur, diastolic murmur, rubs, gallop, clicks GI/Abdominal exam: Present: soft, normal bowel sounds. Absent: distended, tenderness, guarding, rebound, rigid Extremities exam: Present: normal inspection, full ROM, normal capillary refill. Absent: tenderness, pedal edema, joint swelling, calf tenderness Back exam: Present: normal inspection Neurological exam: Present: alert, oriented X3, CN II-XII intact Psychiatric exam: Present: normal affect, normal mood Skin exam: Present: warm, dry, intact, normal color. Absent: rash <Dorian Yusuf - Last Filed: 02/15/25 03:13> Course <Dorian Yusuf - Last Filed: 02/15/25 03:13> Vital Signs 02/12/25 02/13/25 02/13/25 19:47 00:41 02:27 Temperature 98.1 F Pulse Rate 79 68 68 Respiratory 18 14 17 Rate Blood Pressure 152/98 135/95 O2 Sat by Pulse 99 99 99 Oximetry - Reevaluation(s) Reevaluation #1: Medical records reviewed (Dorian Yusuf) Reevaluation #2: Patient symptoms improved (Dorian Yusuf) Reevaluation #3: Patient informed of results and questions answered (Dorian Yusfu) Medical Decision Making - Lab Data Result diagrams: 02/12/25 21:15 02/12/25 21:15 <Carlee Yadav - Last Filed: 02/14/25 19:22> - Lab Data Result diagrams: 02/12/25 21:15 02/12/25 21:15 <Dorian Yusuf - Last Filed: 02/15/25 03:13> - Medical Decision Making Was pt. sent in by a medical professional or institution (, WINSOME, ORDER TAKER, urgent care, hospital, or alf...) When possible be specific @ -[No] Did you speak to anyone other than the patient for history (EMS, parent, family, police, friend...)? What history was obtained from this source @ -[No] Did you review nursing and triage notes (agree or disagree)? Why? @ -[I reviewed and agree with nursing and triage notes] Were old charts reviewed (outside hosp., previous admission, EMS record, old EKG, old radiological studies, urgent care reports/EKG's, alf records)? Report findings @ -Reviewed recent visit Differential Diagnosis (chest pain, altered mental status, abdominal pain women, abdominal pain men, vaginal bleeding, weakness, fever, dyspnea, syncope, headache, dizziness, GI bleed, back pain, seizure, CVA, palpatations, mental health, musculoskeletal)? @ -[facility] Differential Abdominal Pain: Appendicitis, Cholecystitis, diverticulosis, ischemic bowel, pancreatitis, hepatitis, UTI, gastroenteritis, AAA, incarcerated hernia, bowel obstruction, constipation, inflammatory bowel, hepatitis, peptic ulcer disease, splenic infarction, perforated viscus, vulvitis, ovarian torsion, PID, kidney stone, placenta abruption... This is not meant to be an all-inclusive list EKG interpreted by me (3pts min.). @ -[As above] X-rays interpreted by me (1pt min.). @ -KUB x-ray shows overall nonobstructive bowel gas pattern CT interpreted by me (1pt min.). @ -[None done] U/S interpreted by me (1pt. min.). @ -[None done] What testing was considered but not performed or refused? (CT, X-rays, U/S, labs)? Why? @ -[None] What meds were considered but not given or refused? Why? @ -[None] Did you discuss the management of the patient with other professionals (professionals i.e. , PA, ORDER TAKER, lab, RT, psych nurse, social insurance administrator, dental nurse, teacher, commanding officer motorized squad, case consultant)? Give summary @ -[No] Was smoking cessation discussed for >3mins.? @ -[No] Was critical care preformed (if so, how long)? @ -[No] Were there social determinants of health that impacted care today? How? (Homeles sness, low income, unemployed, alcoholism, drug addiction, transportation, low edu. Level, literacy, decrease access to med. care, care home, rehab)? @ -[No] Was there de-escalation of care discussed even if they declined (Discuss DNR or withdrawal of care, Hospice)? DNR status @ -[No] What co-morbidities impacted this encounter? (DM, HTN, Smoking, COPD, CAD, Cancer, CVA, ARF, Chemo, Hep., AIDS, mental health diagnosis, sleep apnea, morbid obesity)? @ -[None] Was patient admitted / discharged? Hospital course, mention meds given and route, prescriptions, significant lab abnormalities, going to OR and other pertinent info. @ -24-year-old transgender male presenting with chief complaint of abdominal pain. Currently has a Watson catheter in for urinary retention. History and physical examination are conducted. Lab work shows no leukocytosis or anemia. CMP is unremarkable. Urine shows moderate blood with greater than 182 RBCs. Negative hCG. KUB x-ray shows overall nonobstructive bowel gas pattern. CT is obtained and report is pending. Patient is signed out to my attending Dr. Galdino almaguer for further management and disposition Undiagnosed new problem with uncertain prognosis? @ -[No] Drug Therapy requiring intensive monitoring for toxicity (Heparin, Nitro, Insulin, Cardizem)? @ -[No] Were any procedures done? @ -[No] Diagnosis/symptom? @ -[default] Acute, or Chronic, or Acute on Chronic? @ -[default] Uncomplicated (without systemic symptoms) or Complicated (systemic symptoms)? @ -[default] Side effects of treatment? @ -[No] Exacerbation, Progression, or Severe Exacerbation? @ -[No] Poses a threat to life or bodily function? How? (Chest pain, [place], [place], pneumonia, PE, COPD, DKA, ARF, appy, cholecystitis, CVA, Diverticulitis, Homicidal, Suicidal, threat to staff... and all critical care pts) @ -[No] (Carlee Yadav) 24 presents with abdominal pain with urinary retention and recent Watson catheter placed persistent pain and hematuria. No acute findings here in the ER patient can be discharged home (Dorian Yusuf) - Lab Data Lab Results 02/12/25 02/12/25 02/12/25 Range/Units 20:24 20:46 21:15 WBC 9.84 (4.50-10.00) 10*3/uL RBC 5.25 (4.40-5.60) 10*6/uL Hgb 15.3 (13.0-17.0) g/dL Hct 44.6 (39.6-50.0) % MCV 85.0 (80.0-97.0) fL MCH 29.1 (27.0-32.0) pg MCHC 34.3 (32.0-37.0) g/dL Plt Count 306 (140-440) 10*3/uL MPV 10.8 (9.5-12.2) fL Immature Gran % (Auto) 0.3 % Neutrophils % 68.0 % Lymphocytes % 15.8 % Monocytes % 9.9 % Eosinophils % 5.2 % Basophils % 0.8 % Immature Gran # 0.03 (0.00-0.04) 10*3/uL Neutrophils # 6.70 (1.80-7.70) 10*3/uL Lymphocytes # 1.55 (0.90-5.00) 10*3/uL Monocytes # 0.97 (0.20-1.00) 10*3/uL Eosinophils # 0.51 H (0.04-0.35) 10*3/uL Basophils # 0.08 (0.00-0.10) 10*3/uL Sodium (137-145) mmol/L Potassium (3.5-5.1) mmol/L Chloride (98-107) mmol/L Carbon Dioxide (22-30) mmol/L Anion Gap mmol/L BUN (9-20) mg/dL Creatinine (0.66-1.25) mg/dL Est GFR (CKD-EPI)AfAm (>60 ml/min/1.73 sqM) Est GFR (CKD-EPI)NonAf (>60 ml/min/1.73 sqM) Glucose (74-99) mg/dL Plasma Lactic Acid Sigifredo (0.7-2.0) mmol/L Calcium (8.4-10.2) mg/dL Total Bilirubin (0.2-1.3) mg/dL AST (17-59) U/L ALT (4-49) U/L Alkaline Phosphatase (38-126) U/L Total Protein (6.3-8.2) g/dL Albumin (3.5-5.0) g/dL Urine Color Yellow Urine Appearance Cloudy (Clear) Urine pH 8.0 (5.0-8.0) Ur Specific Hertel 1.023 (1.001-1.035) Urine Protein 1+ H (Negative) Urine Glucose (UA) Negative (Negative) Urine Ketones Negative (Negative) Urine Blood Moderate H (Negative) Urine Nitrite Negative (Negative) Urine Bilirubin Negative (Negative) Urine Urobilinogen 3.0 (<2.0) mg/dL Ur Leukocyte Esterase Negative (Negative) Urine RBC >182 H (0-5) /hpf Urine WBC 3 (0-5) /hpf Urine Yeast (Budding) Moderate H (None) /hpf Urine HCG, Qual Not Detected 02/12/25 02/12/25 Range/Units 21:15 21:15 WBC (4.50-10.00) 10*3/uL RBC (4.40-5.60) 10*6/uL Hgb (13.0-17.0) g/dL Hct (39.6-50.0) % MCV (80.0-97.0) fL MCH (27.0-32.0) pg MCHC (32.0-37.0) g/dL Plt Count (140-440) 10*3/uL MPV (9.5-12.2) fL Immature Gran % (Auto) % Neutrophils % % Lymphocytes % % Monocytes % % Eosinophils % % Basophils % % Immature Gran # (0.00-0.04) 10*3/uL Neutrophils # (1.80-7.70) 10*3/uL Lymphocytes # (0.90-5.00) 10*3/uL Monocytes # (0.20-1.00) 10*3/uL Eosinophils # (0.04-0.35) 10*3/uL Basophils # (0.00-0.10) 10*3/uL Sodium 139 (137-145) mmol/L Potassium 3.8 (3.5-5.1) mmol/L Chloride 102 (98-107) mmol/L Carbon Dioxide 27 (22-30) mmol/L Anion Gap 10 mmol/L BUN 16 (9-20) mg/dL Creatinine 0.81 (0.66-1.25) mg/dL Est GFR (CKD-EPI)AfAm >90 (>60 ml/min/1.73 sqM) Est GFR (CKD-EPI)NonAf >90 (>60 ml/min/1.73 sqM) Glucose 92 (74-99) mg/dL Plasma Lactic Acid Sigifredo 0.8 (0.7-2.0) mmol/L Calcium 9.7 (8.4-10.2) mg/dL Total Bilirubin 0.9 (0.2-1.3) mg/dL AST 28 (17-59) U/L ALT 34 (4-49) U/L Alkaline Phosphatase 58 (38-126) U/L Total Protein 7.2 (6.3-8.2) g/dL Albumin 4.4 (3.5-5.0) g/dL Urine Color Urine Appearance (Clear) Urine pH (5.0-8.0) Ur Specific Hertel (1.001-1.035) Urine Protein (Negative) Urine Glucose (UA) (Negative) Urine Ketones (Negative) Urine Blood (Negative) Urine Nitrite (Negative) Urine Bilirubin (Negative) Urine Urobilinogen (<2.0) mg/dL Ur Leukocyte Esterase (Negative) Urine RBC (0-5) /hpf Urine WBC (0-5) /hpf Urine Yeast (Budding) (None) /hpf Urine HCG, Qual Disposition <Carlee Yadav - Last Filed: 02/14/25 19:22> Is patient prescribed a controlled substance at d/c from ED?: No Time of Disposition: 02:00 <Dorian Yusuf - Last Filed: 02/15/25 03:13> Clinical Impression: Abdominal pain, Urinary retention, Hematuria Disposition: HOME SELF-CARE Condition: Fair Instructions (If sedation given, give patient instructions): Abdominal Pain (ED) Referrals: Ivan Muñoz MD [Primary Care Provider] - 1-2 days
[2025-02-12 22:13] LABS: Appearance,Urine Cloudy (Clear); Bilirubin,Urine Negative (Negative); Blood,Urine Moderate (Negative); Budding Yeast,Urine Moderate /hpf; Color,Urine Yellow; Glucose,Urine (UA) Negative (Negative); Ketones,Urine Negative (Negative); Leukocyte Esterase,Urine Negative (Negative); Nitrite,Urine Negative (Negative); Protein,Urine 1+ (Negative); RBC,Urine >182 /hpf (0-5); Specific Gravity,Urine 1.023 (1.001-1.035); WBC,Urine 3 /hpf (0-5)
[2025-02-13 00:42] VITALS: BP 135/95; PULSE 68
--- NOTE | 2025-02-13 01:53 | CT ---
EXAM: CT Abdomen and Pelvis Without Intravenous Contrast CLINICAL HISTORY: ITS.REASON CT Reason: pain, hematuria TECHNIQUE: Axial computed tomography images of the abdomen and pelvis without intravenous contrast. CTDI is 11.3 mGy and DLP is 661 mGy-cm. This CT exam was performed using one or more of the following dose reduction techniques: automated exposure control, adjustment of the mA and/or kV according to patient size, and/or use of iterative reconstruction technique. COMPARISON: 02/10/2025 FINDINGS: Limitations: Exam limited secondary to lack of IV contrast. Lung bases: Unremarkable. No mass. No consolidation. ABDOMEN: Liver: Unremarkable. Gallbladder and bile ducts: Postoperative changes prior cholecystectomy. No ductal dilation. Pancreas: Unremarkable. No ductal dilation. Spleen: Unremarkable. No splenomegaly. Adrenals: Unremarkable. No mass. Kidneys and ureters: Unremarkable. No obstructing stones. No hydronephrosis. Previously noted hydroureteronephrosis has resolved. Stomach and bowel: Unremarkable. No obstruction. No mucosal thickening. PELVIS: Appendix: No findings to suggest acute appendicitis. Bladder: Watson catheter within the urinary bladder. No stones. Reproductive: Unremarkable as visualized. ABDOMEN and PELVIS: Intraperitoneal space: Unremarkable. No free air. No significant fluid collection. Bones/joints: No acute fracture. No dislocation. Soft tissues: Unremarkable. Vasculature: Unremarkable. No abdominal aortic aneurysm. Lymph nodes: Unremarkable. No enlarged lymph nodes. IMPRESSION: No acute findings in the abdomen or pelvis. Postoperative changes prior cholecystectomy Interval resolution of bilateral hydronephrosis
[2025-02-13 02:29] VITALS: RESP 17
== END 2025-02-13 02:29 | disposition home or self-care (01) ==
LOC: EDSEX → EC 19:21
DX: R10.30 Lower abdominal pain, unspecified (principal); R33.9 Retention of urine, unspecified; R31.9 Hematuria, unspecified
CPT/HCPCS: 51798; 36415; 80053; 83605; 85025; 81001; 81025; 74018; 74176; 99284; 96374; J1885

== ENCOUNTER 2025-02-13 18:13 | Emergency (ER) | payer OTHER ==
[2025-02-13 18:36] VITALS: TEMP 97.8
--- NOTE | 2025-02-13 19:00 | ED ---
General Adult HPI - General Chief complaint: Urogenital Stated complaint: cath issue Time Seen by Provider: 02/13/25 18:59 Source: patient Mode of arrival: ambulatory Limitations: no limitations - History of Present Illness Initial comments: Vincent is a 24-year-old transgender male who presents to the emergency department today for recurrent urinary retention. Patient was seen over the weekend for lower abdominal pain and CT was suggestive of urinary retention, straight cath was performed and the patient was discharged home, patient subsequently followed up at an outside hospital where a Watson catheter was placed. Earlier today patient followed up in the urology office and had the catheter removed. patient reports that since catheter removal at noon they have been unable to urinate. Patient was provided with straight cath supplies however has been unable to successfully straight cath. Patient reports no previous genital surgeries or procedures. - Related Data Home Medications Medication Instructions Recorded Confirmed levETIRAcetam [Keppra] 1,500 mg PO BID 07/23/22 12/15/24 Testosterone Cypionate 80 mg IM SA 08/06/22 12/15/24 [Depo-Testosterone] Lacosamide 100 mg PO BID 05/06/24 12/15/24 Allergies Allergy/AdvReac Type Severity Reaction Status Date / Time No Known Allergies Allergy Verified 02/13/25 18:35 Review of Systems ROS Statement: Those systems with pertinent positive or pertinent negative responses have been documented in the HPI. ROS Other: All systems not noted in ROS Statement are negative. Past Medical History Past Medical History: GERD/Reflux, Seizure Disorder Additional Past Medical History / Comment(s): LAST SEIZURE 02/27/24, MIGRAINE HEADACHES, patient transitioning to male and has been taking testoterone for 3 years, hiatal hernia History of Any Multi-Drug Resistant Organisms: None Reported Past Surgical History: Breast Surgery, Cholecystectomy Additional Past Surgical History / Comment(s): Endoscopy, [place] teeth, bilat mastectomy, epilepsy Past Anesthesia/Blood Transfusion Reactions: No Reported Reaction Past Psychological History: No Psychological Hx Reported Smoking Status: Never smoker Past Alcohol Use History: Occasional Past Drug Use History: Marijuana - Past Family History Mother Family Medical History: No Reported History, Hypertension Additional Family Medical History / Comment(s): headaches Father Additional Family Medical History / Comment(s): diverticulosis General Exam - General Exam Comments Initial Comments: Physical Exam GENERAL: Patient is well-developed and well-nourished. Patient is nontoxic and well-hydrated and is in no distress. HENT: Normocephalic, Atraumatic. EYES: PERRL, EOMI PULMONARY: Unlabored respirations. CARDIOVASCULAR: RRR Warm and well perfused extremities ABDOMEN: Non-distended SKIN: No rashes or bruising : Deferred NEUROLOGIC: Alert and oriented Normal speech Normal gait MUSCULOSKELETAL: Moving all extremities with no apparent injury PSYCHIATRIC: No SI/HI Limitations: no limitations Course Vital Signs 02/13/25 18:31 Temperature 97.8 F Pulse Rate 65 Respiratory 17 Rate Blood Pressure 139/83 O2 Sat by Pulse 96 Oximetry Medical Decision Making - Medical Decision Making Was pt. sent in by a medical professional or institution (, WINSOME, INCLUSION MANAGER, urgent care, hospital, or skilled nursing...) When possible be specific @ -No Did you speak to anyone other than the patient for history (EMS, parent, family, police, friend...)? What history was obtained from this source @ -No Did you review nursing and triage notes (agree or disagree)? Why? @ -I reviewed and agree with nursing and triage notes Were old charts reviewed (outside hosp., previous admission, EMS record, old EKG, old radiological studies, urgent care reports/EKG's, skilled nursing records)? Report findings @ -Yes previous ER visits were reviewed Differential Diagnosis (chest pain, altered mental status, abdominal pain women, abdominal pain men, vaginal bleeding, weakness, fever, dyspnea, syncope, headache, dizziness, GI bleed, back pain, seizure, CVA, palpatations, mental health)? @ -Differential includes urinary retention, urinary tract infection EKG interpreted by me (3pts min.). @ -As above X-rays interpreted by me (1pt min.). @ -None done CT interpreted by me (1pt min.). @ -None done U/S interpreted by me (1pt. min.). @ -None done What testing was considered but not performed or refused? (CT, X-rays, U/S, labs)? Why? @ -None What meds were considered but not given or refused? Why? @ -None Did you discuss the management of the patient with other professionals (professionals i.e. , WINSOME, INCLUSION MANAGER, lab, RT, psych nurse, social service coordinator, return checker, teacher, radio division officer, patient case manager)? Give summary @ -No Was smoking cessation discussed for >3mins.? @ -No Was critical care preformed (if so, how long)? @ -No Were there social determinants of health that impacted care today? How? (Homelessness, low income, unemployed, alcoholism, drug addiction, transportation, low edu. Level, literacy, decrease access to med. care, [facility], rehab)? @ -No Was there de-escalation of care discussed even if they declined (Discuss DNR or withdrawal of care, Hospice)? DNR status @ -No What co-morbidities impacted this encounter? (DM, HTN, Smoking, COPD, CAD, Cancer, CVA, ARF, Chemo, Hep., AIDS, mental health diagnosis, sleep apnea, morbid obesity)? @ -None Was patient admitted / discharged? Hospital course, mention meds given and route, prescriptions, significant lab abnormalities, going to OR and other pertinent info. @ -Patient was seen and evaluated, bladder scan reveals over 100 mL in the bladder, Watson catheter was placed will remain in place until follow up with uro. Patient will remain on antibiotics prescribed by urology. Undiagnosed new problem with uncertain prognosis? @ -No Drug Therapy requiring intensive monitoring for toxicity (Heparin, Nitro, Insulin, Cardizem)? @ -No Were any procedures done? @ -No Diagnosis/symptom? @ -Default Acute, or Chronic, or Acute on Chronic? @ -Default Uncomplicated (without systemic symptoms) or Complicated (systemic symptoms)? @ -Default Side effects of treatment? @ -No Exacerbation, Progression, or Severe Exacerbation? @ -No Poses a threat to life or bodily function? How? (Chest pain, [place], [place], pneumonia, PE, COPD, DKA, ARF, appy, cholecystitis, CVA, Diverticulitis, Homicidal, Suicidal, threat to staff... and all critical care pts) @ -No Disposition Clinical Impression: Urinary retention Disposition: HOME SELF-CARE Condition: Stable Instructions (If sedation given, give patient instructions): Watson Catheter Placement and Care (ED) Is patient prescribed a controlled substance at d/c from ED?: No Referrals: Ivan Muñoz MD [Primary Care Provider] - 1-2 days
[2025-02-13 21:46] VITALS: BP 156/107; PULSE 76; RESP 18
== END 2025-02-13 21:33 | disposition home or self-care (01) ==
LOC: EDSEX → EC 18:13
DX: R33.9 Retention of urine, unspecified (principal)
CPT/HCPCS: 51702; 51798; 99283

== ENCOUNTER → 2025-02-16 | Outpatient (CLI) | payer OTHER ==
[2025-02-16 16:19] VITALS: BP 144/115; PULSE 80; RESP 16; TEMP 97.7
--- NOTE | 2025-02-16 17:46 | P.PROGSL ---
Subjective DATE: 02/16/2025 FOLLOW UP VISIT. Patient returned to sleep center for follow-up visit to discuss results of sleep study and following plan. I discussed results of sleep studies with patient in details. Diagnostic polysomnogram did not show any significant respiratory abnormalities. No periodic limb movements have been documented. Multiple sleep latency test on the following day consisted from 5 naps and confirmed pathological sleepiness with mean sleep latency 4.5 minutes and 2 sleep onset REM periods. Patient continued to have symptoms of significant excessive daytime sleepiness. [place] Sleepiness Scale today is an extremely high range of 21. MEDICATIONS: Please see below During physical exam: GENERAL: A pleasant patient without any distress. VITAL SIGNS: Please see below. HEENT: PERRLA, EOMI. NECK: Supple. No JVD. LUNGS: Clear to percussion and to auscultation. Good air exchange. No wheezing or rhonchi. HEART: S1, S2 regular. ABDOMEN: Soft and nontender. EXTREMITIES: No clubbing or cyanosis. ROLLER MECHANIC: Awake, alert, and oriented x3. No focal deficit. Impressions: 1. No significant respiratory abnormalities have been documented during the sleep test 2. No significant periodic limb movements. 3. Pathological sleepiness was confirmed by MSLT, mean sleep latency 4.5 minutes with 2 sleep onset REM periods, which indicate diagnosis of narcolepsy. 4. Epilepsy, last episode 2 months ago. 5. Status post bilateral mastectomy. 6. Obesity. 7. Hypertrophy of tonsils. Plan: 1. Patient will start treatment with lowest doses of Adderall 5 mg in the morning and in the middle of the day to prevent excessive sleepiness 2. Sleep hygiene with regular time in bed for at least 8 hours. 3. Daytime naps permitted 4. Precautions related to driving. No driving if feel any sleepiness. Patient is aware about civil and criminal liability for unsafe driving, promised to follow recommendations. 5. Follow up visit in 1 months or earlier if patient has any problems. Thank you very much for allowing me to participate in the management of your patient. Murali Roman MD, PhD, FAASM. Diplomat of [place] [employer], Sleep Medicine Board by [place] [employer] [facility] [place] cc: Ivan Muñoz MD Objective - Vital Signs Vital Signs: Vital Signs Temp 97.7 F 02/16/25 16:19 Pulse 80 02/16/25 16:19 Resp 16 02/16/25 16:19 BP 144/115 02/16/25 16:19 Pulse Ox 98 02/16/25 16:19 FiO2 Intake & Output 02/15/25 02/16/25 02/16/25 18:59 06:59 18:59 Weight 87.09 kg Home Medications: Home Medications Medication Instructions Recorded Confirmed Type levETIRAcetam [Keppra] 1,500 mg PO BID 07/23/22 02/16/25 History Testosterone Cypionate 80 mg IM SA 08/06/22 02/16/25 History [Depo-Testosterone] Lacosamide 100 mg PO BID 05/06/24 02/16/25 History
== END ==
LOC: EDSEX → 3 N SLEEP 15:32
PROVIDERS: ATTEND Internal Medicine
DX: G47.419 Narcolepsy without cataplexy (principal); G40.909 Epilepsy, unspecified, not intractable, without status epilepticus; J35.1 Hypertrophy of tonsils; E66.9 Obesity, unspecified; Z90.13 Acquired absence of bilateral breasts and nipples; F12.90 Cannabis use, unspecified, uncomplicated
CPT/HCPCS: 99212

== ENCOUNTER 2025-02-17 15:51 | Emergency (ER) | payer OTHER ==
--- NOTE | 2025-02-17 19:01 | ED ---
General Adult HPI - General Chief complaint: Urogenital Stated complaint: Urogenital Time Seen by Provider: 02/17/25 17:55 Source: patient, RN notes reviewed Mode of arrival: ambulatory Limitations: no limitations - History of Present Illness Initial comments: 24-year-old transgender male presents to the emergency department for evaluation of hematuria. The patient reports that they have a Watson catheter in place and states that they noticed blood in the urine today. He is following with urology and is scheduled to have a procedure towards the end of February. He denies any fever, chills. Does note some ongoing discomfort which he has been seen for recently. - Related Data Home Medications Medication Instructions Recorded Confirmed levETIRAcetam [Keppra] 1,500 mg PO BID 07/23/22 02/16/25 Testosterone Cypionate 80 mg IM SA 08/06/22 02/16/25 [Depo-Testosterone] Lacosamide 100 mg PO BID 05/06/24 02/16/25 Previous Rx's Medication Instructions Recorded Cephalexin [Keflex] 500 mg PO Q6HR #28 cap 02/17/25 Allergies Allergy/AdvReac Type Severity Reaction Status Date / Time No Known Allergies Allergy Verified 02/17/25 16:27 Review of Systems ROS Statement: Those systems with pertinent positive or pertinent negative responses have been documented in the HPI. ROS Other: All systems not noted in ROS Statement are negative. Past Medical History Past Medical History: GERD/Reflux, Seizure Disorder Additional Past Medical History / Comment(s): LAST SEIZURE 02/27/24, MIGRAINE HEADACHES, patient transitioning to male and has been taking testoterone for 3 years, hiatal hernia History of Any Multi-Drug Resistant Organisms: None Reported Past Surgical History: Breast Surgery, Cholecystectomy Additional Past Surgical History / Comment(s): Endoscopy, [place] teeth, bilat mastectomy, epilepsy Past Anesthesia/Blood Transfusion Reactions: No Reported Reaction Past Psychological History: No Psychological Hx Reported Smoking Status: Never smoker Past Alcohol Use History: Occasional Past Drug Use History: Marijuana - Past Family History Mother Family Medical History: No Reported History, Hypertension Additional Family Medical History / Comment(s): headaches Father Additional Family Medical History / Comment(s): diverticulosis General Exam Limitations: no limitations General appearance: alert, in no apparent distress Head exam: Present: atraumatic, normocephalic, normal inspection Eye exam: Present: normal appearance, PERRL, EOMI. Absent: scleral icterus, conjunctival injection, periorbital swelling Respiratory exam: Present: normal lung sounds bilaterally. Absent: respiratory distress, wheezes, rales, rhonchi, stridor Cardiovascular Exam: Present: regular rate, normal rhythm, normal heart sounds. Absent: systolic murmur, diastolic murmur, rubs, gallop, clicks GI/Abdominal exam: Present: soft, normal bowel sounds. Absent: distended, tenderness, guarding, rebound, rigid Extremities exam: Present: normal inspection, full ROM, normal capillary refill. Absent: tenderness, pedal edema, joint swelling, calf tenderness Neurological exam: Present: alert, oriented X3 Psychiatric exam: Present: normal affect, normal mood Skin exam: Present: warm, dry, intact, normal color. Absent: rash Course Vital Signs 02/17/25 02/17/25 16:24 21:49 Temperature 98 F 98.1 F Pulse Rate 51 56 Respiratory 16 14 Rate Blood Pressure 155/104 152/91 O2 Sat by Pulse 100 100 Oximetry Medical Decision Making - Medical Decision Making Was pt. sent in by a medical professional or institution (, PA, ANIMAL CARETAKER SUPERVISOR, urgent care, hospital, or retirement...) When possible be specific @ -No Did you speak to anyone other than the patient for history (EMS, parent, family, police, friend...)? What history was obtained from this source @ -No Did you review nursing and triage notes (agree or disagree)? Why? @ -I reviewed and agree with nursing and triage notes Were old charts reviewed (outside hosp., previous admission, EMS record, old EKG, old radiological studies, urgent care reports/EKG's, retirement records)? Report findings @ -No old charts were reviewed Differential Diagnosis (chest pain, altered mental status, abdominal pain women, abdominal pain men, vaginal bleeding, weakness, fever, dyspnea, syncope, headache, dizziness, GI bleed, back pain, seizure, CVA, palpatations, mental health, musculoskeletal)? @ -UTI, kidney stones, trauma from Watson catheter, this list is not all inclusive EKG interpreted by me (3pts min.). @ -None X-rays interpreted by me (1pt min.). @ -None done CT interpreted by me (1pt min.). @ -None done U/S interpreted by me (1pt. min.). @ -None done What testing was considered but not performed or refused? (CT, X-rays, U/S, labs)? Why? @ -None What meds were considered but not given or refused? Why? @ -None Did you discuss the management of the patient with other professionals (professionals i.e. Dr., PA, ANIMAL CARETAKER SUPERVISOR, lab, RT, psych nurse, certified social workers in health care, explosive operator fuse, teacher, morale officer, manager of case)? Give summary @ -No Was smoking cessation discussed for >3mins.? @ -No Was critical care preformed (if so, how long)? @ -No Were there social determinants of health that impacted care today? How? (Homelessness, low income, unemployed, alcoholism, drug addiction, transportation, low edu. Level, literacy, decrease access to med. care, halfway, rehab)? @ -No Was there de-escalation of care discussed even if they declined (Discuss DNR or withdrawal of care, Hospice)? DNR status @ -No What co-morbidities impacted this encounter? (DM, HTN, Smoking, COPD, CAD, Cancer, CVA, ARF, Chemo, Hep., AIDS, mental health diagnosis, sleep apnea, morbid obesity)? @ -None Was patient admitted / discharged? Hospital course, mention meds given and route, prescriptions, significant lab abnormalities, going to OR and other pertinent info. @ -Discharge. Patient presented to the emergency department for evaluation of hematuria. Patient has an indwelling Watson catheter. He is scheduled for urological procedure at the end of February. UA was obtained Robb large blood, small leukocyte esterase. There is branden hematuria. Patient will be started on different antibiotic. Advised to follow-up with urology. Patient is understanding agreeable with plan. Patient stable at time of discharge. Case discussed with Dr. Lyons Undiagnosed new problem with uncertain prognosis? @ -No Drug Therapy requiring intensive monitoring for toxicity (Heparin, Nitro, Insulin, Cardizem)? @ -No Were any procedures done? @ -No Diagnosis/symptom? @ -Hematuria Acute, or Chronic, or Acute on Chronic? @ -Acute Uncomplicated (without systemic symptoms) or Complicated (systemic symptoms)? @ -Uncomplicated Side effects of treatment? @ -No Exacerbation, Progression, or Severe Exacerbation? @ -No Poses a threat to life or bodily function? How? (Chest pain, [place], [place], pneumonia, PE, COPD, DKA, ARF, appy, cholecystitis, CVA, Diverticulitis, Homicidal, Suicidal, threat to staff... and all critical care pts) @ -No - Lab Data Lab Results 02/17/25 02/17/25 Range/Units 19:52 21:23 Urine Color Light Yellow Red Urine Appearance Clear Turbid (Clear) Urine pH 7.0 7.0 (5.0-8.0) Ur Specific [place] 1.004 1.011 (1.001-1.035) Urine Protein 1+ H 2+ H (Negative) Urine Glucose (UA) Negative Negative (Negative) Urine Ketones Negative Negative (Negative) Urine Blood Large H Large H (Negative) Urine Nitrite Negative Negative (Negative) Urine Bilirubin Negative Negative (Negative) Urine Urobilinogen <2.0 <2.0 (<2.0) mg/dL Ur Leukocyte Esterase Trace H Small H (Negative) Urine RBC 18 H >182 H (0-5) /hpf Urine WBC 2 >182 H (0-5) /hpf Calcium Oxalate Crystal Few H (None) /hpf Disposition Clinical Impression: Hematuria Disposition: HOME SELF-CARE Condition: Stable Instructions (If sedation given, give patient instructions): Hematuria (ED) Additional Instructions: Please follow-up with your urologist. Return to the emergency department for new or worsening symptoms. Prescriptions: Cephalexin [Keflex] 500 mg PO Q6HR #28 cap Is patient prescribed a controlled substance at d/c from ED?: No Referrals: Ivan Muñoz MD [Primary Care Provider] - 1-2 days
[2025-02-17 20:51] LABS: Appearance,Urine Clear (Clear); Bilirubin,Urine Negative (Negative); Blood,Urine Large (Negative); Calcium Oxalate Crystals,Urine Few /hpf; Color,Urine Light Yellow; Glucose,Urine (UA) Negative (Negative); Ketones,Urine Negative (Negative); Leukocyte Esterase,Urine Trace (Negative); Nitrite,Urine Negative (Negative); Protein,Urine 1+ (Negative); RBC,Urine 18 /hpf (0-5); Specific Gravity,Urine 1.004 (1.001-1.035); Urobilinogen,Urine <2.0 mg/dL (<2.0); WBC,Urine 2 /hpf (0-5)
[2025-02-17 21:50] VITALS: BP 152/91; PULSE 56; RESP 14; TEMP 98.1
[2025-02-17 21:53] LABS: Appearance,Urine Turbid (Clear); Bilirubin,Urine Negative (Negative); Blood,Urine Large (Negative); Color,Urine Red; Glucose,Urine (UA) Negative (Negative); Ketones,Urine Negative (Negative); Leukocyte Esterase,Urine Small (Negative); Nitrite,Urine Negative (Negative); Protein,Urine 2+ (Negative); RBC,Urine >182 /hpf (0-5); Urobilinogen,Urine <2.0 mg/dL (<2.0); WBC,Urine >182 /hpf (0-5)
[2025-02-17 21:56] LABS: Specific Gravity,Urine 1.011 (1.001-1.035)
== END 2025-02-17 22:23 | disposition home or self-care (01) ==
LOC: EC 15:51
DX: R31.9 Hematuria, unspecified (principal)
CPT/HCPCS: 51702; 81001; 87086; 99283

== ENCOUNTER 2025-02-26 00:16 | Emergency (ER) | payer OTHER ==
[2025-02-26 00:20] VITALS: BP 150/109; PULSE 71; RESP 18; TEMP 98.3
--- NOTE | 2025-02-26 02:31 | ED ---
General Adult HPI - General Chief complaint: Abdominal Pain Stated complaint: abd pain Time Seen by Provider: 02/26/25 02:07 Source: patient Mode of arrival: ambulatory Limitations: no limitations - History of Present Illness Initial comments: 24-year-old male, born female, identifies as male, presents centimeters presenting today for abdominal pain. Patient states that he has had an indwelling Watson catheter for 3 weeks. He sees a urologist in is following up with them in about 1 week. He has noticed darkening of his urine as well as an orange tint to it. He denies any vaginal discharge, vaginal bleeding. Denies any urethral discharge. States that his abdominal pain began about 7 PM yesterday evening. Described as sharp in the periumbilical region. Nonradiating. No prior abdominal surgeries. 1 episode nonbloody nonbilious emesis earlier today. Chronic diarrhea. No black or bloody stools. Has felt sweaty but no fevers. - Related Data Home Medications Medication Instructions Recorded Confirmed levETIRAcetam [Keppra] 1,500 mg PO BID 07/23/22 02/16/25 Testosterone Cypionate 80 mg IM SA 08/06/22 02/16/25 [Depo-Testosterone] Lacosamide 100 mg PO BID 05/06/24 02/16/25 Previous Rx's Medication Instructions Recorded Cephalexin [Keflex] 500 mg PO Q6HR #28 cap 02/17/25 Cephalexin [Keflex] 500 mg PO Q6HR 10 Days #40 cap 02/26/25 Allergies Allergy/AdvReac Type Severity Reaction Status Date / Time No Known Allergies Allergy Verified 02/26/25 00:20 Review of Systems ROS Statement: Those systems with pertinent positive or pertinent negative responses have been documented in the HPI. ROS Other: All systems not noted in ROS Statement are negative. Past Medical History Past Medical History: GERD/Reflux, Seizure Disorder Additional Past Medical History / Comment(s): LAST SEIZURE 02/27/24, MIGRAINE HEADACHES, patient transitioning to male and has been taking testoterone for 3 years, hiatal hernia History of Any Multi-Drug Resistant Organisms: None Reported Past Surgical History: Breast Surgery, Cholecystectomy Additional Past Surgical History / Comment(s): Endoscopy, [place] teeth, bilat mastectomy, epilepsy Past Anesthesia/Blood Transfusion Reactions: No Reported Reaction Past Psychological History: No Psychological Hx Reported Smoking Status: Never smoker Past Alcohol Use History: Occasional Past Drug Use History: Marijuana - Past Family History Mother Family Medical History: No Reported History, Hypertension Additional Family Medical History / Comment(s): headaches Father Additional Family Medical History / Comment(s): diverticulosis General Exam - General Exam Comments Initial Comments: PE: CONSTITUTIONAL: [no apparent distress, well appearing] SKIN: [warm, dry, no jaundice, hives or petechiae] EYES:[ pupils are equally round, extraocular movements intact without nystagmus, clear conjunctiva, non-icteric sclera] HENT: [normocephalic, atraumatic, moist mucus membranes, oropharynx clear without exudates] NECK: , [Full range of motion, normal appearance] PULMONARY: [clear to auscultation without wheezes, rhonchi, or rales, normal excursion, no accessory muscle use and no stridor] CARDIOVASCULAR:[ regular rate, rhythm, normal S1 and S2. No appreciated murmurs, rubs or gallops. Strong radial pulses with intact distal perfusion. No lower extremity edema] GASTROINTESTINAL: [soft, active bowel sounds throughout, periumbilical tenderness, right lower quadrant tenderness on lower quadrant tenderness, non- distended, no palpable masses, no rebound guarding palpation of the lower abdomen no hepatosplenomegaly] GENITOURINARY: MUSCULOSKELETAL: [Extremities have no gross deformity, no edema, redness, or swelling. No calf swelling ] NEUROLOGIC: [_a/o x 3, GCS 15, normal mentation and speech. Moves all extremities x 4 without motor or sensory deficit] PSYCHIATRIC:[ _normal mood and affect, thought process is clear and linear] Limitations: no limitations Course Vital Signs 02/26/25 00:17 Temperature 98.3 F Pulse Rate 71 Respiratory 18 Rate Blood Pressure 150/109 O2 Sat by Pulse 98 Oximetry Medical Decision Making - Medical Decision Making Was pt. sent in by a medical professional or institution (, PA, [employer], urgent care, hospital, or prison...) When possible be specific @ -[No] Did you speak to anyone other than the patient for history (EMS, parent, family, police, friend...)? What history was obtained from this source @ -[No] Did you review nursing and triage notes (agree or disagree)? Why? @ -[I reviewed and agree with nursing and triage notes] Were old charts reviewed (outside hosp., previous admission, EMS record, old EKG, old radiological studies, urgent care reports/EKG's, prison records)? Report findings @ -[Medical records reviewed] Differential Diagnosis (chest pain, altered mental status, abdominal pain women, abdominal pain men, vaginal bleeding, weakness, fever, dyspnea, syncope, he adache, dizziness, GI bleed, back pain, seizure, CVA, palpatations, mental health, musculoskeletal)? Differential Abdominal Pain Men: Appendicitis, cholecystitis, diverticulosis, ischemic bowel, pancreatitis, hepatitis, UTI, gastroenteritis, AAA, incarcerated hernia, bowel obstruction, constipation, inflammatory bowel, hepatitis, peptic ulcer disease, splenic infarction, perforated viscus, testicular torsion, this is not meant to be an all-inclusive list EKG interpreted by me (3pts min.). @ -[As above] X-rays interpreted by me (1pt min.). @ -[None done] CT interpreted by me (1pt min.). @ -[None done] U/S interpreted by me (1pt. min.). @ -[None done] What testing was considered but not performed or refused? (CT, X-rays, U/S, labs)? Why? @ -[None] What meds were considered but not given or refused? Why? @ -[None] Did you discuss the management of the patient with other professionals (pro fessionals i.e. , PA, [employer], lab, RT, psych nurse, social services, cementer machine applicator, teacher, youth officer, case briefer)? Give summary @ -[No] Was smoking cessation discussed for >3mins.? @ -[No] Was critical care preformed (if so, how long)? @ -[No] Were there social determinants of health that impacted care today? How? (Homelessness, low income, unemployed, alcoholism, drug addiction, transportation, low edu. Level, literacy, decrease access to med. care, prison, rehab)? @ -[No] Was there de-escalation of care discussed even if they declined (Discuss DNR or withdrawal of care, Hospice)? @ -[No] What co-morbidities impacted this encounter? (DM, HTN, Smoking, COPD, CAD, Cancer, CVA, ARF, Chemo, Hep., AIDS, mental health diagnosis, sleep apnea, morbid obesity)? @ -[None] Was patient admitted / discharged? Hospital course, mention meds given and route, prescriptions, significant lab abnormalities, going to OR and other pertinent info. @ -[hospital course] this is a pleasant 24-year-old gentleman presenting today for lower abdominal pain. Vital signs stable on arrival. Exam significant for periumbilical and bilateral lower quadrant tenderness. Urine in his Watson catheter appears reddish-orange. Will plan for CT of the pelvis with contrast, comprehensive labs, urinalysis and bladder scan. Patient will receive Toradol and Tylenol for pain control. Undiagnosed new problem with uncertain prognosis? @ -[No] Drug Therapy requiring intensive monitoring for toxicity (Heparin, Nitro, Insulin, Cardizem)? @ -[No] Were any procedures done? @ -[No] Diagnosis/symptom? @ -[default] Acute, or Chronic, or Acute on Chronic? @ -[default] Uncomplicated (without systemic symptoms) or Complicated (systemic symptoms)? @ -[default] Side effects of treatment? @ -[No] Exacerbation, Progression, or Severe Exacerbation? @ -[No] Poses a threat to life or bodily function? How? (Chest pain, [place], SD, pneumonia, PE, COPD, DKA, ARF, appy, cholecystitis, CVA, Diverticulitis, Homicidal, Suicidal, threat to staff... and all critical care pts) @ -[No] - Lab Data Result diagrams: 02/26/25 02:25 02/26/25 02:25 Lab Results 02/26/25 02/26/25 02/26/25 Range/Units 02:25 02:25 02:25 WBC 17.34 H (4.50-10.00) 10*3/uL RBC 5.71 H (4.10-5.60) 10*6/uL Hgb 16.5 (12.0-17.0) g/dL Hct 47.6 (37.2-50.0) % MCV 83.4 (80.0-97.0) fL MCH 28.9 (27.0-32.0) pg MCHC 34.7 (32.0-37.0) g/dL Plt Count 357 (140-440) 10*3/uL MPV 10.7 (9.5-12.2) fL Immature Gran % (Auto) 0.4 % Neutrophils % 76.4 % Lymphocytes % 12.5 % Monocytes % 6.7 % Eosinophils % 3.3 % Basophils % 0.7 % Immature Gran # 0.07 H (0.00-0.04) 10*3/uL Neutrophils # 13.24 H (1.80-7.70) 10*3/uL Lymphocytes # 2.16 (0.90-5.00) 10*3/uL Monocytes # 1.17 H (0.20-1.00) 10*3/uL Eosinophils # 0.57 H (0.04-0.35) 10*3/uL Basophils # 0.13 H (0.00-0.10) 10*3/uL PT (10.0-12.5) sec INR (<1.2) APTT (22.0-30.0) sec Sodium 138 (137-145) mmol/L Potassium 3.9 (3.5-5.1) mmol/L Chloride 102 (98-107) mmol/L Carbon Dioxide 25 (22-30) mmol/L Anion Gap 11 mmol/L BUN 11 (7-17) mg/dL Creatinine 0.82 (0.52-1.04) mg/dL Est GFR (CKD-EPI)AfAm >90 (>60 ml/min/1.73 sqM) Est GFR (CKD-EPI)NonAf >90 (>60 ml/min/1.73 sqM) Glucose 101 H (74-99) mg/dL Plasma Lactic Acid Sigifredo 0.8 (0.7-2.0) mmol/L Calcium 9.5 (8.4-10.2) mg/dL Total Bilirubin 0.9 (0.2-1.3) mg/dL AST 26 (14-36) U/L ALT 33 (4-34) U/L Alkaline Phosphatase 59 (38-126) U/L Total Protein 7.4 (6.3-8.2) g/dL Albumin 4.6 (3.5-5.0) g/dL Lipase 76 (23-300) U/L HCG, Qual Urine Color Urine Appearance (Clear) Urine pH (5.0-8.0) Ur Specific Post (1.001-1.035) Urine Protein (Negative) Urine Glucose (UA) (Negative) Urine Ketones (Negative) Urine Blood (Negative) Urine Nitrite (Negative) Urine Bilirubin (Negative) Urine Urobilinogen (<2.0) mg/dL Ur Leukocyte Esterase (Negative) Urine RBC (0-5) /hpf Urine WBC (0-5) /hpf Ur Squamous Epith Cells (0-4) /hpf Amorphous Sediment (None) /hpf Urine Bacteria (None) /hpf Hyaline Casts (0-2) /lpf Urine Mucus (None) /hpf 02/26/25 02/26/25 02/26/25 Range/Units 02:25 02:30 02:30 WBC (4.50-10.00) 10*3/uL RBC (4.10-5.60) 10*6/uL Hgb (12.0-17.0) g/dL Hct (37.2-50.0) % MCV (80.0-97.0) fL MCH (27.0-32.0) pg MCHC (32.0-37.0) g/dL Plt Count (140-440) 10*3/uL MPV (9.5-12.2) fL Immature Gran % (Auto) % Neutrophils % % Lymphocytes % % Monocytes % % Eosinophils % % Basophils % % Immature Gran # (0.00-0.04) 10*3/uL Neutrophils # (1.80-7.70) 10*3/uL Lymphocytes # (0.90-5.00) 10*3/uL Monocytes # (0.20-1.00) 10*3/uL Eosinophils # (0.04-0.35) 10*3/uL Basophils # (0.00-0.10) 10*3/uL PT 11.5 (10.0-12.5) sec INR 1.1 (<1.2) APTT 25.7 (22.0-30.0) sec Sodium (137-145) mmol/L Potassium (3.5-5.1) mmol/L Chloride (98-107) mmol/L Carbon Dioxide (22-30) mmol/L Anion Gap mmol/L BUN (7-17) mg/dL Creatinine (0.52-1.04) mg/dL Est GFR (CKD-EPI)AfAm (>60 ml/min/1.73 sqM) Est GFR (CKD-EPI)NonAf (>60 ml/min/1.73 sqM) Glucose (74-99) mg/dL Plasma Lactic Acid Sigifredo (0.7-2.0) mmol/L Calcium (8.4-10.2) mg/dL Total Bilirubin (0.2-1.3) mg/dL AST (14-36) U/L ALT (4-34) U/L Alkaline Phosphatase (38-126) U/L Total Protein (6.3-8.2) g/dL Albumin (3.5-5.0) g/dL Lipase (23-300) U/L HCG, Qual Not Detected Urine Color Light [place] Urine Appearance Cloudy H (Clear) Urine pH 7.0 (5.0-8.0) Ur Specific Post 1.013 (1.001-1.035) Urine Protein 3+ H (Negative) Urine Glucose (UA) Negative (Negative) Urine Ketones Negative (Negative) Urine Blood Large H (Negative) Urine Nitrite Negative (Negative) Urine Bilirubin Negative (Negative) Urine Urobilinogen <2.0 (<2.0) mg/dL Ur Leukocyte Esterase Moderate H (Negative) Urine RBC >182 H (0-5) /hpf Urine WBC 86 H (0-5) /hpf Ur Squamous Epith Cells <1 (0-4) /hpf Amorphous Sediment Rare H (None) /hpf Urine Bacteria Many H (None) /hpf Hyaline Casts 28 H (0-2) /lpf Urine Mucus Rare H (None) /hpf Disposition Clinical Impression: Acute cystitis Disposition: HOME SELF-CARE Condition: Stable Instructions (If sedation given, give patient instructions): Watson Catheter Placement and Care (ED), Dysuria (ED) Additional Instructions: Every disease is a spectrum and a small chance still exists that a serious condition could develop, for this reason, please monitor yourself closely for new, changing or worsening symptoms, symptoms that persist beyond 48 hours, uncontrollable pain fever, inability to tolerate/keep down fluids or your medications, inability to follow up with outpatient providers as instructed and should you experience these symptoms or should you have any further concerns for your wellbeing please return to the ED or call 911 immediately. Please drink plenty of fluids. Get plenty of rest. You may use cool compresses as needed for swelling. You may want to try soaking a feminine hygiene pad in water and placing it in the freezer, and then using the frozen pad to soothe pain and swelling. PLEASE call your primary care physician as soon as possible to arrange / discuss plan for followup appointment. Appointment in the next 1-3 days is strongly encouraged if possible. PLEASE let us know here before you leave if there is anything further we can do to be of any assistance. Take care and feel Better! Prescriptions: Cephalexin [Keflex] 500 mg PO Q6HR 10 Days #40 cap Is patient prescribed a controlled substance at d/c from ED?: No Referrals: Ivan Muñoz MD [Primary Care Provider] - 1-2 days
[2025-02-26 02:44] LABS: Basophils # (A) 0.13 10*3/uL (0.00-0.10); Basophils % (A) 0.7 %; Eosinophils # (A) 0.57 10*3/uL (0.04-0.35); Eosinophils % (A) 3.3 %; HCT 47.6 % (37.2-50.0); HGB 16.5 g/dL (12.0-17.0); Lymphocytes # (A) 2.16 10*3/uL (0.90-5.00); Lymphocytes % (A) 12.5 %; MCH 28.9 pg (27.0-32.0); MCHC 34.7 g/dL (32.0-37.0); MCV 83.4 fL (80.0-97.0); Mean Platelet Volume 10.7 fL (9.5-12.2); Monocytes # (A) 1.17 10*3/uL (0.20-1.00); Monocytes % (A) 6.7 %; Neutrophils # (A) 13.24 10*3/uL (1.80-7.70); Neutrophils % (A) 76.4 %; Platelet Count 357 10*3/uL (140-440); RBC 5.71 10*6/uL (4.10-5.60); RDW 12.2 % (11.5-14.5); WBC 17.34 10*3/uL (4.50-10.00)
[2025-02-26 02:55] LABS: ALT 33 U/L (4-34); AST 26 U/L (14-36); African American GFR (CKD) >90 (>60 ml/min/1.73 sqM); Albumin 4.6 g/dL (3.5-5.0); Alkaline Phosphatase 59 U/L (38-126); Anion Gap 11 mmol/L; Blood Urea Nitrogen 11 mg/dL (7-17); Calcium 9.5 mg/dL (8.4-10.2); Carbon Dioxide 25 mmol/L (22-30); Chloride 102 mmol/L (98-107); Glucose 101 mg/dL (74-99); Lipase 76 U/L (23-300); Non-African American GFR(CKD) >90 (>60 ml/min/1.73 sqM); Potassium 3.9 mmol/L (3.5-5.1); Sodium 138 mmol/L (137-145); Total Bilirubin 0.9 mg/dL (0.2-1.3); Total Protein 7.4 g/dL (6.3-8.2)
[2025-02-26] MEDS: ONDANSETRON 4 MG/2 ML VIAL IVP STA (02:57)
[2025-02-26] MEDS: ACETAMINOPHEN IV (For NPO) 1,000 MG in EMPTY BAG 1 BAG IVPB STA (02:57)
[2025-02-26] MEDS: KETOROLAC 15 MG/ML 1 ML VIAL IVP STA (02:57)
[2025-02-26] MEDS: SODIUM CHLORIDE 0.9% 1,000 ML IV ONE (02:58)
[2025-02-26 03:00] LABS: INR 1.1 (<1.2); Partial Thromboplastin Time 25.7 sec (22.0-30.0); Prothrombin Time 11.5 sec (10.0-12.5)
[2025-02-26 03:03] LABS: Amorphous Sediment,Urine Rare /hpf; Appearance,Urine Cloudy (Clear); Bacteria,Urine Many /hpf; Bilirubin,Urine Negative (Negative); Blood,Urine Large (Negative); Color,Urine Light Orange; Glucose,Urine (UA) Negative (Negative); Hyaline Casts,Urine 28 /lpf (0-2); Ketones,Urine Negative (Negative); Leukocyte Esterase,Urine Moderate (Negative); Mucus,Urine Rare /hpf; Nitrite,Urine Negative (Negative); Protein,Urine 3+ (Negative); RBC,Urine >182 /hpf (0-5); Specific Gravity,Urine 1.013 (1.001-1.035); Squamous Epithelial Cell,Urine <1 /hpf (0-4); Urobilinogen,Urine <2.0 mg/dL (<2.0); WBC,Urine 86 /hpf (0-5)
[2025-02-26] MEDS: cefTRIAXone IN SWFI 1,000 MG/10 ML SYRINGE IVP STA (03:50)
--- NOTE | 2025-02-26 04:03 | CT ---
EXAM: CT Abdomen and Pelvis With Intravenous Contrast CLINICAL HISTORY: ITS.REASON CT Reason: periumbilical pain, transitioning F to M TECHNIQUE: Axial computed tomography images of the abdomen and pelvis with intravenous contrast. CTDI is 20.2 mGy and DLP is 1050.6 mGy-cm. This CT exam was performed using one or more of the following dose reduction techniques: automated exposure control, adjustment of the mA and/or kV according to patient size, and/or use of iterative reconstruction technique. COMPARISON: No relevant prior studies available. FINDINGS: Lung bases: Unremarkable. No mass. No consolidation. ABDOMEN: Liver: Unremarkable. No mass. Gallbladder and bile ducts: Cholecystectomy. No ductal dilation. Pancreas: Unremarkable. No mass. No ductal dilation. Spleen: Unremarkable. No splenomegaly. Adrenals: Unremarkable. No mass. Kidneys and ureters: Unremarkable. No solid mass. No hydronephrosis. Stomach and bowel: Unremarkable. No obstruction. No mucosal thickening. PELVIS: Appendix: No findings to suggest acute appendicitis. Bladder: Watson catheter terminates in a decompressed urinary bladder which is severely thickened, concerning for UTI. Reproductive: Unremarkable as visualized. ABDOMEN and PELVIS: Intraperitoneal space: Unremarkable. No free air. No significant fluid collection. Bones/joints: No acute fracture. No dislocation. Soft tissues: Unremarkable. Vasculature: Unremarkable. No abdominal aortic aneurysm. Lymph nodes: Unremarkable. No enlarged lymph nodes. IMPRESSION: Watson catheter terminates in a decompressed urinary bladder which is severely thickened, concerning for UTI.
[2025-02-26] MEDS: CEPHALEXIN 500 MG CAP PO STA (05:53)
[2025-02-26] MEDS: ONDANSETRON ODT 4 MG TAB PO STA (05:54)
[2025-02-26] MEDS: CEPHALEXIN 500MG STARTER PACK 4 CAP BTL PO STA (05:54)
[2025-02-26] MEDS: ONDANSETRON 4 MG ODT STARTER PACK 2 TAB BTL PO STA (05:54)
[2025-02-26] MEDS ORDERED: LIDOCAINE 2% GLYDO JELLY 6 ML APPL TOPICAL STA (06:17)
[2025-02-26] MEDS ORDERED: MIDAZOLAM 2 MG/2 ML VIAL IV ONE (06:18)
[2025-02-26] MEDS ORDERED: fentaNYL (PF) 50 MCG/ML 2 ML AMP IVP STA (06:18)
== END 2025-02-26 07:20 | disposition home or self-care (01) ==
LOC: EC 00:16
DX: R10.31 Right lower quadrant pain (principal); R10.32 Left lower quadrant pain; N30.00 Acute cystitis without hematuria
CPT/HCPCS: 51798; 36415; 80053; 83605; 83690; 85025; 85610; 85730; 81001; 84703; 87086; 74177; 99284; 96365; 96375; 51702; J2405; J0696; J0131; J1885; S0119; Q9967

== ENCOUNTER → 2025-05-12 | Outpatient (CLI) | payer OTHER ==
--- NOTE | 2025-05-12 11:25 | P.PROGSL ---
Subjective DATE: 05/12/2025 FOLLOW UP VISIT. Patient returned to sleep center for follow-up visit related to treatment of significant excessive daytime sleepiness secondary to narcolepsy. Presently patient is on Adderall 10 mg twice a day, but patient continued to have symptoms of excessive daytime sleepiness and does not feel improvements in alertness. No any side effects . [place] sleepiness scale is an extremely high range of 23. MEDICATIONS:1. Levetiracetam 2. Testosterone 3. Lacosamide 4. Adderall 10 mg twice a day During physical exam: GENERAL: A pleasant patient without any distress. VITAL SIGNS: BP 126/78, HR 58, RR 16, weight 187, temperature 98.1, oxygen saturation at room air 97. HEENT: PERRLA, EOMI. NECK: Supple. No JVD. LUNGS: Clear to percussion and to auscultation. Good air exchange. No wheezing or rhonchi. HEART: S1, S2 regular. ABDOMEN: Soft and nontender. EXTREMITIES: No clubbing or cyanosis. 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 No focal deficit. Impressions: 1. Narcolepsy type II. Results of MSLT 4.5 minutes and 2 sleep onset REM. Confirmed diagnosis 2. Epilepsy, last episode about 4 months ago. 3. Status post bilateral mastectomy. 4. Obesity. 5. Hypertrophy of tonsils. Plan: 1. Patient will continue treatment with Adderall, dose will be increased to 20 mg twice a day 2. Sleep hygiene with regular time in bed for at least 8 hours. 3. Daytime naps permitted 4. Precautions related to driving. No driving if feel any sleepiness. Patient is aware about civil and criminal liability for unsafe driving, promised to follow recommendations. 5. Follow up visit in 4-6 weeks or earlier if patient has any problems. Thank you very much for allowing me to participate in the management of your patient. Murali Roman MD, PhD, FAASM. Diplomat of [place] [employer], Sleep Medicine Board by [place] [employer] Excellence Manager of [facility] [place] Objective Home Medications: Home Medications Medication Instructions Recorded Confirmed Type levETIRAcetam [Keppra] 1,500 mg PO BID 07/23/22 03/16/25 History Testosterone Cypionate 80 mg IM SA 08/06/22 03/16/25 History [Depo-Testosterone] Lacosamide 100 mg PO BID 05/06/24 03/16/25 History Cephalexin [Keflex] 500 mg PO Q6HR #28 cap 02/17/25 Rx Cephalexin [Keflex] 500 mg PO Q6HR 10 Days #40 cap 02/26/25 Rx Dextroamphetamine/Amphetamine 5 mg PO BID 03/16/25 03/16/25 History [Adderall] Lacosamide 100 mg PO BID 03/16/25 03/16/25 History levETIRAcetam 1,000 mg PO BID 03/16/25 03/16/25 History levETIRAcetam [Keppra] 500 mg PO BID 03/16/25 03/16/25 History
== END ==
LOC: 3 N SLEEP 10:18
PROVIDERS: ATTEND Internal Medicine
CPT/HCPCS: 99212